=== PATIENT | female | born 2005 | race Caucasian/White ===

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

== ENCOUNTER 2025-03-18 07:53 | Emergency (ER) | payer BC, MEDICAID, SELFPAY ==
--- OUTSIDE RECORDS SUMMARY | 2025-02-03 13:13 | XMS RPT_ITS ---
Author Name Auto Generated Organization OH[facility] Care Team Providers Care Cob Sawyer Name Role Phone YOLANDA FROST Attending Unavailable ASHISH ALDRIDGE Primary Care Unavailable REFERRED, SELF Referring Unavailable MATTHIEU PENDLETON Attending Unavailable ASHISH ADLRIDGE Primary Care Unavailable REFERRED, SELF Referring Unavailable FANTASMA LYMAN Primary Care Unavailable FANTASMA LYMAN Primary Care Unavailable STEPHANIA PELAEZ Attending Unavailable FANTASMA LYMAN Primary Care Unavailable NAKIA DOYLE Attending NAKIA Snow Primary Care Wilfredo OVERTON, PHYSICIAN Primary Care Unavailable MYESHA MORRELL Attending Unavailabl e PROBLEMS DATE TYPE CONDITION / CODE ATTENDING STATUS [facility] 02/03/2025 Active Urgency of urina tion / R39.15(ICD-10) STEPHANIA PELAEZ Active [facility] 01/22/2025 Final Diagnosis (Discharge) Restless legs syndrome / G25.81(ICD-10) [facility], [facility] 01/22/2025 Final Diagnosis (Discharge) Sleep disorder, unspecified / G47.9(ICD-10) [facility], [facility] 01/22/2025 Final Diagnosis (Discharge) Anxiety disorder, unspecified / F41.9(ICD-10) [facility] 01/22/2025 Final Diagnosis (Discharge) Encounter for screening for other suspected endocrine disorder / Z13.29(ICD-10) [facility], [facility] 08/21/2024 Admitting diagnosis Other psychoactive substance use, unspecified, uncomplicated / F19.90(ICD-10) [facility] 08/21/2024 Admitting diagnosis Opioid use, unspecified with withdrawal / F11.93(ICD-10) [facility] PROCEDURES No Procedure Records Found RESULTS BACTERIAL VAGINOSIS NAAT Collected: 2:37 PM Status: F Source: [facility] Order Comment: Specimen Type : SWAB Ordering Facility: [facility] Address: [address] [place] [address] TYPE CODE TESTS RESULT OUT OF RANGE REFERENCE UNITS LAB 58327-9([facility]) BV bacteria rRNA Vag Ql EBONI+probe Detected Abnormal Not detected Performed By: #### BVAMP, 36 902-5 #### [facility] CLIA [id number] [address] [place] [address] [place] C TRACH+GC DNA SPEC QL EBONI+PROBE Collected: 02/03/2025 2:37 PM Status: F Source: [facility] Order Comment: Specimen Type : SWAB Ordering Facility: [facility] Address: [address] [place] [address] TYPE CODE TESTS RESULT OUT OF RANGE REFERENCE UNITS LAB 76663-6(LOINC) N gonorrhoea rRNA Spec Ql EBONI+probe Not detected Not detected LAB 84455-3(LOINC) C trach rRNA Spec Ql EBONI+probe Not detected Not detected Performed By: #### BVAMP, 36 902-5 #### [facility] CLIA [id number] [address] [place] [address] [place] BACTERIA UR CULT Observed: 02/03/2025 2:37 PM Status: F Source: [facility] ORGANISM ID: 1 10,000 -<50,000 CFU/ml Mixed microbiota No further workup. Mixed microbiota can be due to???urine???contamination with skin bacteria at time of collection or presence of a long-term urinary catheter. If a new culture is needed, please consider re-education of the patient on proper midstream collection technique or straight catheterization for???urine???collection. Performed By: #### 630-4 ### # [facility] CLIA [id number] [address] [place] [address] [place] DODIE/TRICHOMONAS NAAT Collected: 2:37 PM Status: F Source: [facility] Order Comment: Specimen Type : SWAB Ordering Facility: [facility] Address: [address] [place] [address] TYPE CODE TESTS RESULT OUT OF RANGE REFERENCE UNITS LAB 72176-2([facility] ) Dodie DNA Vag Ql EBONI+probe Detected Abnormal Not detected Result Comment: The Dodie species group target includes C. albicans, C. tropicalis, C. parapsilosis, and C. dubliniensis. LAB 84877-0(INC ) C glabrata RNA Vag Ql EBONI+probe Not detected Not detected LAB 71016-6([facility] ) T vaginalis DNA Spec Ql EBONI+probe Not detected Not detected Performed By: #### CVTV #### [facility] CLIA [id number] [address] [place] [address] [place] PROGRESS Observed: 02/03/2025 2:05 PM Status: COMPLETED Source: [facility] HNO ID: [id number] Author: STEPHANIA PELAEZ MD Service: ? Author Type: Physician Type: Progress Notes Filed: 02/03/2025 15:05 Note Text: URGENT CARE LISA Ascencio Tabler is a 19 year old female. Patient presents with: Urinary Problem: Burning with urination x 2 days Would like std testing done as well Pt here with 2 day hx of dysuria no freq and urgency no vaginal discharge no abd/flank pain no N/V no fever or chills has had a uti once now with same sx Review of Systems Constitutional: Negative for chills, fatigue and fever. Gastrointestinal: Negative for abdominal pain, nausea and vomiting. Genitourinary: Positive for dysuria. Negative for flank pain, frequency, hematuria, pelvic pain, urgency, vaginal discharge and vaginal pain. Objective BP 115/77 Pulse 69 Temp 36.8 ?C (98.2 ?F) Resp 20 Wt 57 kg (125 lb 10.6 oz) LMP 01/07/2025 (Exact Date) SpO2 100% Physical Exam Vitals and nursing note reviewed. Constitutional: Appearance: Normal appearance. She is not ill-appearing. Abdominal: General: Bowel sounds are normal. Palpations: Abdomen is soft. Tenderness: There is no abdominal tenderness. There is no right CVA tenderness, left CVA tenderness, guarding or rebound. Neurological: Mental Status: She is alert and oriented to person, place, and time. Psychiatric: Mood and Affect: Mood normal. Behavior: Behavior normal. {ASSESSMENT/PLAN: 1. Urgency of urination - ICD9: 788.63, ICD10: R39.15 Will start treatment for a UTI and await results - HCG QUAL UR B/O - UA DIP, URINE (POC) - BACTERIAL CULTURE, URINE - GONORRHEA/CHLAMYDIA NAAT - DODIE/TRICHOMONAS NAAT - BACTERIAL VAGINOSIS NAAT - NITROFURANTOIN MONOHYDRATE AND MACROCRYSTAL 100 MG ORAL CAP Hcg was negative Stephania Pelaez MD History and Record Review External record(s) reviewed: prior outpatient record. Differential Diagnoses - uti is more likely for the following reason(s): suggested by HANDP - std is less likely for the following reason(s): no vaginal d/c, HANDP not suggestive Disposition The patient was discharged. Procedures CNOV Observed: 02/03/2025 1:15 PM Status: COMPLETED Source: [facility] Office Visit ([facility]) SONU KLEIN ([id number]) 5 F Date Time Provider Department 02/03/25 1:15 PM STEPHANIA PELAEZ During your visit today, we recorded the following information about you: Temperature Pulse Respiration Blood pressure 98.2 degrees 69/minute 20/minute 115/77 Weight Last Period 57 kg 01/07/25 Stephania Pelaez MD 02/03/2025 2:05 PM Signed Urinary Tract Infection Adult You have been diagnosed with a basic urinary tract infection (UTI). This means it does not involve your kidneys or areas other than your bladder. A UTI is an infection in your bladder. Your doctor diagnosed it by testing your urine. UTIs usually causes burning when you urinate (pee) or urinating often. It might make you feel like you have to urinate even when you don't. UTI is usually treated with antibiotics and medicine to help with pain. It is very important that you fill your prescription and take all of the antibiotics as directed. If a urinary tract infection goes untreated for too long, it can become a kidney infection. For Women: To reduce the risk of getting another UTI: Always urinate before and after sexual intercourse. Always wipe from front to back after urinating or having a bowel movement. Do not wipe from back to front. Drink plenty of fluids. Try to drink cranberry or blueberry juice. These juices have a chemical that stops bacteria from sticking to the bladder. Return here or go to the nearest Emergency Department immediately if: You have a fever (temperature higher than 100.4?F / 38?C) or shaking chills. You feel nauseated (sick to your stomach) or vomit (throw up). You have pain in your side or back. You don't get better after taking all of your antibiotics. You have any new symptoms or concerns. You feel worse or do not improve. If you can't follow up with your doctor, or if at any time you feel you need to be rechecked or seen again, come back here or go to the nearest emergency department. Stephania Peleaz MD 02/03/2025 3:05 PM Signed URGENT CARE LISAKENIA Lundr is a 19 year old female. Patient presents with: Urinary Problem: Burning with urination x 2 days Would like std testing done as well Pt here with 2 day hx of dysuria no freq and urgency no vaginal discharge no abd/flank pain no N/V no fever or chills has had a uti once now with same sx Review of Systems Constitutional: Negative for chills, fatigue and fever. Gastrointestinal: Negative for abdominal pain, nausea and vomiting. Genitourinary: Positive for dysuria. Negative for flank pain, frequency, hematuria, pelvic pain, urgency, vaginal discharge and vaginal pain. Objective BP 115/77 Pulse 69 Temp 36.8 ?C (98.2 ?F) Resp 20 Wt 57 kg (125 lb 10.6 oz) LMP 01/07/2025 (Exact Date) SpO2 100% Physical Exam Vitals and nursing note reviewed. Constitutional: Appearance: Normal appearance. She is not ill-appearing. Abdominal: General: Bowel sounds are normal. Palpations: Abdomen is soft. Tenderness: There is no abdominal tenderness. There is no right CVA tenderness, left CVA tenderness, guarding or rebound. Neurological: Mental Status: She is alert and oriented to person, place, and time. Psychiatric: Mood and Affect: Mood normal. Behavior: Behavior normal. {ASSESSMENT/PLAN: 1. Urgency of urination - ICD9: 788.63, ICD10: R39.15 Will start treatment for a UTI and await results - HCG QUAL UR B/O - UA DIP, URINE (POC) - BACTERIAL CULTURE, URINE - GONORRHEA/CHLAMYDIA NAAT - DODIE/TRICHOMONAS NAAT - BACTERIAL VAGINOSIS NAAT - NITROFURANTOIN MONOHYDRATE AND MACROCRYSTAL 100 MG ORAL CAP Hcg was negative Stephania Pelaez MD History and Record Review External record(s) reviewed: prior outpatient record. Differential Diagnoses - uti is more likely for the following reason(s): suggested by HANDP - std is less likely for the following reason(s): no vaginal d/c, HANDP not suggestive Disposition The patient was discharged. Procedures Allergies As of Date: 02/03/2025 (No Known Allergies) Date Reviewed: 02/03/2025 Reviewed by: Valeriano, Lyndsey, SANITARY CHEMIST - Fully Assessed Reason for Visit: Urinary Problem [252] Cmt: Burning with urination x 2 days Would like std testing done as well Primary Visit Diagnosis:Urgency of urination [R39.15] Order(s):UA DIP, URINE (POC) [[id number]] Order #: [id number]. #:[id number] BACTERIAL CULTURE, URINE [SQURCUL] Order #: [id number]. #:[id number] GONORRHEA/CHLAMYDIA NAAT [SQGCCT] Order #: [id number]. #:[id number] DODIE/TRICHOMONAS NAAT [SQCVTV] Order #: [id number]. #:[id number] BACTERIAL VAGINOSIS NAAT [SQBVAMP] Order #: [id number]. #:[id number] nitrofurantoin monohydrate and macrocrystal (MACROBID) 100 mg capsuleTake 1 capsule by mouth two times a day for 7 days.Disp: 14 capsuleRfl: 0 HCG QUAL UR B/O [[id number]] Order #: [id number] Prescriptions as of 02/03/2025 - ascorbic acid, vitamin C, (VITAMIN C) 250 mg tablet Take 250 mg by mouth once daily. - ferrous sulfate (IRON) 325 mg (65 mg iron) tablet Take 325 mg by mouth once daily. - folic acid 400 mcg tablet Take 400 mcg by mouth once daily. - nitrofurantoin monohydrate and macrocrystal (MACROBID) 100 mg capsule Take 1 capsule by mouth two times a day for 7 days. Problem List As Of Date: 02/03/2025 (None) Other instructions from your clinician: Urinary Tract Infection Adult You have been diagnosed with a basic urinary tract infection (UTI). This means it does not involve your kidneys or areas other than your bladder. A UTI is an infection in your bladder. Your doctor diagnosed it by testing your urine. UTIs usually causes burning when you urinate (pee) or urinating often. It might make you feel like you have to urinate even when you don't. UTI is usually treated with antibiotics and medicine to help with pain. It is very important that you fill your prescription and take all of the antibiotics as directed. If a urinary tract infection goes untreated for too long, it can become a kidney infection. For Women: To reduce the risk of getting another UTI: Always urinate before and after sexual intercourse. Always wipe from front to back after urinating or having a bowel movement. Do not wipe from back to front. Drink plenty of fluids. Try to drink cranberry or blueberry juice. These juices have a chemical that stops bacteria from sticking to the bladder. Return here or go to the nearest Emergency Department immediately if: You have a fever (temperature higher than 100.4?F / 38?C) or shaking chills. You feel nauseated (sick to your stomach) or vomit (throw up). You have pain in your side or back. You don't get better after taking all of your antibiotics. You have any new symptoms or concerns. You feel worse or do not improve. If you can't follow up with your doctor, or if at any time you feel you need to be rechecked or seen again, come back here or go to the nearest emergency department. Prescriptions ordered this encounter Disp Refills Start End NITROFURANTOIN MONOHYDRATE AND MACROCR* 14 c* 0 02/03/2025 02/10/2025 Route: PO Sig: Take 1 capsule by mouth two times a day for 7 days. Level of Service: OFFICE/OUTPATIENT ESTABLISHED MOD [facility] 30 MIN [59052] Encounter Status:Closed by STEPHANIA PELAEZ on 02/03/25 FE Collected: 5 3:49 PM Status: F Source: [facility] TYPE CODE TESTS RESULT OUT OF RANGE REFERENCE UNITS LAB FE(LOINC) Iron 25 Low 50-170 mcg/dL Performed By: #### FE #### [facility] [address] [place], [place] [address] CBC Collected: 5 3:48 PM Status: F Source: [facility] TYPE CODE TESTS RESULT OUT OF RANGE REFERENCE UNITS LAB WBC(LOINC) WBC 6.9 4.5-10.8 10 3/mcL LAB RBCCT(LOINC) RBC 4.76 4.10-5.30 10 6/mcL LAB HGB(LOINC) Hgb 13.2 12.0-16.0 G/dL LAB HCT(LOINC) Hct 40.1 34.0-46.0 % LAB MCV(LOINC) MCV 84.3 80.0-99.0 fL LAB MCH(LOINC) MCH 27.6 27.0-33.0 pg LAB MCHC(LOINC) MCHC 32.8 32.0-36.0 G/dL LAB RDW(LOINC) RDW 15.3 11.5-15.5 % LAB PLT(LOINC) Platelet 293 150-450 10 3/mcL LAB MPV(LOINC) MPV 8.6 6.6-10.5 fL Performed By: #### GFR, VIDH , IBC, CBC, ADIFF, ANEU, FERR, TSH, CMP #### [address] [address] #### B12, FOL #### [address] [address] .AUTO DIFF Collected: 01/22/2025 3:48 PM Status: F Source: [facility] TYPE CODE TESTS RESULT OUT OF RANGE REFERENCE UNITS LAB DAVON(LOINC) Neutrophil % 43.5 Low 50.0-75.0 % LAB LYM(LOINC) Lymphocyte % 41.6 High 20.0-40.0 % LAB MON(LOINC) Monocyte % 8.9 2.0-13.0 % LAB EO(LOINC) Eosinophil % 4.8 0.0-6.0 % LAB BAS(LOINC) Basophil % 1.2 0.0-2.5 % LAB ABLYM(LOINC) Lymphocyte, Absolute 2.9 0.9-4.3 10 3/mcL LAB ZUHAIR(LOINC) Monocyte, Absolute 0.6 0.1-1.4 10 3/mcL LAB AEOS(LOINC) Eosinophil, Absolute 0.3 0.0-0.7 10 3/mcL LAB ABAS(LOINC) Basophil, Absolute 0.1 0.0-0.3 10 3/mcL Performed By: #### GFR, VIDH , IBC, CBC, ADIFF, ANEU, FERR, TSH, CMP #### [address] [address] #### B12, FOL #### [address] [address] .NEUABS Collected: 3:48 PM Status: F Source: [facility] TYPE CODE TESTS RESULT OUT OF RANGE REFERENCE UNITS LAB ANEU(LOINC) Neutrophil, Absolute 3.0 2.3-8.1 10 3/mcL Performed By: #### GFR, VIDH , IBC, CBC, ADIFF, ANEU, FERR, TSH, CMP #### [place] [address] #### B12, FOL #### [place] [address] FERR Collected: 3:48 PM Status: F Source: [facility] TYPE CODE TESTS RESULT OUT OF RANGE REFERENCE UNITS LAB FERR(LOINC) Ferritin 23.0 8.0-252.0 ng/mL Performed By: #### GFR, VIDH , IBC, CBC, ADIFF, ANEU, FERR, TSH, CMP #### [place] [address] #### B12, FOL #### [place] [address] TSH Collected: 3:48 PM Status: F Source: [facility] TYPE CODE TESTS RESULT OUT OF RANGE REFERENCE UNITS LAB TSH(LOINC) TSH 2.12 0.52-4.13 mcIU/mL Performed By: #### GFR, VIDH , IBC, CBC, ADIFF, ANEU, FERR, TSH, CMP #### [place] [address] #### B12, FOL #### [place] [address] CMP Collected: 01/22/2025 3:48 PM Status: F Source: [facility] TYPE CODE TESTS RESULT OUT OF RANGE REFERENCE UNITS LAB GLU(LOINC) Glucose Level 86 70-105 mg/dL LAB NA(LOINC) Sodium Level 140 136-145 mmol/L LAB K(LOINC) Potassium Level 3.6 3.5-5.1 mmol/L LAB CL(LOINC) Chloride 105 98-107 mmol/L LAB CO2(LOINC) CO2 29 22-29 mmol/L LAB EBAL(LOINC) Electrolyte Balance 6.0 4.0-15.0 mEq/L LAB BUN(LOINC) BUN 12 7-18 mg/dL LAB CRE(LOINC) Creatinine Lvl (s) 0.66 0.51-0.95 mg/dL LAB BC(LOINC) BUN/Creatinine Ratio 18 7-27 ratio LAB CA(LOINC) Calcium Lvl 9.8 8.4-10.2 mg/dL LAB PROT(LOINC) Total Protein 7.6 6.4-8.2 G/dL LAB ALB(LOINC) Albumin Level 4.0 3.5-5.0 G/dL LAB GLB(LOINC) Globulin 3.6 2.7-4.4 G/dL LAB AG(LOINC) A/G Ratio 1.1 1.1-2.5 ratio LAB BILT(LOINC) Bili Total 0.3 0.2-1.0 mg/dL Result Comment: Use of this assay is not recommended for patients undergoing treatment with eltrombopag due to the potential for falsely elevated results. LAB AP(LOINC) Alk Phos 54 40-135 U/L LAB AST(LOINC) AST/SGOT 14 10-40 U/L LAB ALT(LOINC) ALT/SGPT 17 14-59 U/L Performed By: #### GFR, VIDH , IBC, CBC, ADIFF, ANEU, FERR, TSH, CMP #### [address] [address] #### B12, FOL #### [address] [address] .GFR Collected: 01/22/2025 3:48 PM Status: F Source: [facility] TYPE CODE TESTS RESULT OUT OF RANGE REFERENCE UNITS LAB eGFR(LOINC) Estimated Glomerular Filtration Rate >120 ml/min/1. 73sqm Result Comment: Stages of Chronic Kidney Disease (CKD) Stage Description eGFR(ml/min/1.73 sq.m.) CKD 1 Normal kidney function or >=90 normal kindney function with possible kidney damage (ex. Proteinuria) CKD 2 Kidney damage with mild loss 60-89 of kidney function CKD 3a Mild to moderate loss of kidney 45-59 function CKD 3b Moderate to severe loss of 30-44 of kindey function CKD 4 Severe loss of kidney function 15-29 CKD 5 Kidney failure <15 Note: (go live 2024) the eGFR calculation was updated to the 2020 CKD-EPI creatinine equation without a race factor to calculate the eGFR results. Performed By: #### GFR, VIDH , IBC, CBC, ADIFF, ANEU, FERR, TSH, CMP #### [address] [address] #### B12, FOL #### [address] [address] VIDH Collected: 3:48 PM Status: F Source: [facility] TYPE CODE TESTS RESULT OUT OF RANGE REFERENCE UNITS LAB VIDH(LOINC) Vit. D 25-Hydroxy 38.3 ng/mL Result Comment: Interpretive Values Based on Total 25(OH) Vitamin D: Deficient <20 ng/mL Insufficient 20 - <30 ng/mL Sufficient 30-100 ng/mL Performed By: #### GFR, VIDH , IBC, CBC, ADIFF, ANEU, FERR, TSH, CMP #### [address] [address] #### B12, FOL #### [place] [id number] IBC Collected: 3:48 PM Status: F Source: [facility] TYPE CODE TESTS RESULT OUT OF RANGE REFERENCE UNITS LAB IBC(LOINC) TIBC 365 250-450 mcg/dL Performed By: #### GFR, VIDH , IBC, CBC, ADIFF, ANEU, FERR, TSH, CMP #### [address] [address] #### B12, FOL #### [place] [address] B12 Collected: 01/22/2025 3:48 PM Status: F Source: [facility] TYPE CODE TESTS RESULT OUT OF RANGE REFERENCE UNITS LAB B12(LOINC) Vitamin B12 Lvl 1107 High 211-911 pg/mL Performed By: #### GFR, VIDH , IBC, CBC, ADIFF, ANEU, FERR, TSH, CMP #### [place] [id number] [place], [place] [address] #### B12, FOL #### [address] [address] FOL Collected: 3:48 PM Status: F Source: [facility] TYPE CODE TESTS RESULT OUT OF RANGE REFERENCE UNITS LAB FOL(LOINC) Folate 12.80 5.38-24.00 ng/mL Performed By: #### GFR, VIDH , IBC, CBC, ADIFF, ANEU, FERR, TSH, CMP #### [address] [address] #### B12, FOL #### [address] [address] PROGRESS NOTE Observed: 09/20/2024 3:30 PM Status: COMPLETED Source: [facility] Patient ID: Sonu garcia is a 19 y.o. female. Her chief complaint(s) include: Insomnia (restlessness) and Left Knee Pain (Had whole life but has recently gotten worse due to participation in sports) Assessment 1. Tendonitis of left knee 2. Other insomnia 3. Opiate withdrawal Plan Sonu was seen today for insomnia and left knee pain. Diagnoses and associated orders for this visit: Tendonitis of left knee Comments: with history Lopez Schlatter Orders: - X-Ray Knee 3 Views Left; Future Other insomnia Comments: likely related to some opiate withdrawl Orders: - hydrOXYzine (ATARAX) 25 MG tablet; Take 1 Tablet (25 mg) by mouth every 6 hours as needed for Anxiety May take 2 tablets (50 mg) by mouth at bedtime if needed for sleep. Opiate withdrawal Knee pain- Exercises given- consider PT EConsult addiction services Call Mom with recommendations- ok with Sonu Mom does have narcan at home Subjective HPI Comments: 1.) Knee pain, always proximal tibial area bilateral. 5-6 years ago. Thinks maybe Lopez Schlatters. She played basketball, volleyball, track/ softball in past at [employer]. The left knee is bothering her a lot 2.) Sleep is also an issue. Fentanyl was issue about 1 year. Sober now for a month. She went to rehab outside of [place]. She gets restless legs syndrome. She can be up around 23 hours during the day. She tried melatonin and get some sleep. She has relapsed once (prior to the last month). We discussed hydroxyzine as an option for both sleep and the restlessness she feels during the day. Currently Sonu is not in any kind of outpatient rehabilitation program. She is interested in this. She is accompanied by her mother. Independent history obtained from mother. Primary Care Review of Systems Objective Vital Signs 09/20/24 1532 Temp: 36.8 C (98.3 F) TempSrc: Temporal Weight: 63.2 kg Height: 157.5 cm Body mass index is 25.48 kg/m . Physical Exam Constitutional: She appears well. She is active. No distress. HENT: Head: Atraumatic. Mouth/Throat: Mucous membranes are moist. Cardiovascular: Normal rate and regular rhythm. Heart murmur not heard. Pulmonary/Chest: Breath sounds normal. There is normal air entry. Neurological: She is alert. Vitals reviewed: Temperature 36.8 C (98.3 F), temperature source Temporal, height 157.5 cm, weight 63.2 kg, last menstrual period 09/09/2024. ED PROV NOTE Observed: 08/21/2024 2:51 PM Status: COMPLETED Source: [facility] EMERGENCY DEPARTMENT CASE NOTE: NAME: Sonu Begum Tabler CSN: [id number] 19 y.o. PCP: No, Physician History: Chief Complaint: Withdrawal HPI: The history was obtained from the patient. Sonu is a 19 y.o. female who presents with a chief complaint of Withdrawal. Patient presents to the emergency department with complaints of fentanyl use. She states that she would like to get into a detox unit to get off fentanyl. She states the last time that she used was yesterday. She states that she does smoke the fentanyl when she uses it. She denies any chance of . She states that she has been having some withdrawal symptoms including restlessness, nausea and bodyaches. She denies any other complaints. No fever/chills, headache, lightheadedness or dizziness, shortness of breath, chest pain, vomiting, diarrhea, abdominal pain or change urination/urinary symptoms. She reports has been eating and drinking okay. PMHx: Past Medical History: Diagnosis Date Constipation PMSx: History reviewed. No pertinent surgical history. FAM. Hx: History reviewed. No pertinent family history. SOC. Hx: Social History Socioeconomic History Marital status: Single Tobacco Use Smoking status: Never Smokeless tobacco: Never Vaping Use Vaping status: Never Used Substance and Sexual Activity Alcohol use: Never Drug use: Yes Types: Marijuana, Other Comment: smokes marijuana (one week ago) smoking fetanyl yesterday MEDs: Previous Medications Medication Sig dicyclomine (BENTYL) 20 mg tablet Take 1 (one) tablet (20 mg total) by mouth 4 (four) times a day before meals and nightly for 14 days . polyethylene glycol (MIRALAX) 17 gram powder Take 17 g by mouth daily as needed . ALL: No Known Allergies ROS: Review of Systems Constitutional: Negative. HENT: Negative. Eyes: Negative. Respiratory: Negative. Cardiovascular: Negative. Gastrointestinal: Negative. Endocrine: Negative. Genitourinary: Negative. Musculoskeletal: Negative. Skin: Negative. Allergic/Immunologic: Negative. Neurological: Negative. Hematological: Negative. Psychiatric/Behavioral: Negative. All other systems reviewed and are negative. Positives and pertinent negatives as per HPI. All other systems were reviewed and are negative. Physical Exam: Patient Vitals for the past 24 hrs: BP Temp Temp src Pulse SpO2 08/21/24 1243 132/80 98.7 degrees F (37.1 degrees C) Oral 80 99 % Physical Exam Vitals and nursing note reviewed. Constitutional: General: She is not in acute distress. Appearance: Normal appearance. She is not ill-appearing, toxic-appearing or diaphoretic. HENT: Mouth/Throat: Mouth: Mucous membranes are moist. Pharynx: Oropharynx is clear. Eyes: Conjunctiva/sclera: Conjunctivae normal. Cardiovascular: Pulses: Radial pulses are 2+ on the right side and 2+ on the left side. Heart sounds: Normal heart sounds, S1 normal and S2 normal. No murmur heard. No friction rub. No gallop. Pulmonary: Breath sounds: Normal breath sounds. Abdominal: General: Abdomen is flat. Palpations: Abdomen is soft. Tenderness: There is no abdominal tenderness. There is no guarding or rebound. Skin: General: Skin is warm. Capillary Refill: Capillary refill takes less than 2 seconds. Neurological: General: No focal deficit present. Mental Status: She is alert and oriented to person, place, and time. GCS: GCS eye subscore is 4. GCS verbal subscore is 5. GCS motor subscore is 6. Cranial Nerves: Cranial nerves 2-12 are intact. Sensory: Sensation is intact. Motor: No weakness. Coordination: Coordination is intact. Gait: Gait normal. Psychiatric: Behavior: Behavior is cooperative. Laboratory & Radiological Imaging (if done): Labs Reviewed URINALYSIS - Abnormal; Notable for the following components: Result Value Clarity, Urine Cloudy (*) Specific [place] 1.028 (*) pH, Urine 7.5 (*) Protein, Urine 30 (*) Urobilinogen, Urine 2.0 (*) Bacteria, Urine Few (*) Squamous Epithelial 70 (*) Mucus, Urine Few (*) All other components within normal limits Narrative: Microscopic examination is performed on all urinalysis samples and only positive findings are reported. The test for blood on the chemical analytic portion of urinalysis may also be positive due to hemoglobinuria and myoglobinuria and if red blood cells are present they are quantified by microscopic examination. DRUGS OF ABUSE SCREEN, URINE - Abnormal; Notable for the following components: Amphetamine Screen, Urine Presumptive Positive (*) Cannabinoid Screen, Urine Presumptive Positive (*) Cocaine, Screen Urine Presumptive Positive (*) Buprenorphine, Ur Presumptive Positive (*) Fentanyl, Ur Presumptive Positive (*) All other components within normal limits Narrative: Screen results should be used for treatment purposes only. Specimen will be kept for 2 weeks, if the sample is adequate. Confirmation testing can be initiated by calling the lab within 2 weeks. CHEM 7 - Abnormal; Notable for the following components: Glucose 122 (*) All other components within normal limits Narrative: [facility] has implemented the eGFR calculation approach that does not have a coefficient for race that conforms to the NKF-ASN Task Force Recommendations. ALCOHOL, MEDICAL - Normal HCG, SERUM, QUALITATIVE - Normal Narrative: Negative: The result is less than or equal to 5 mIU/mL of HCG. CBC AND DIFFERENTIAL Narrative: The following orders were created for panel order CBC w/ Diff. Procedure Abnormality Status --------- ------ CBC Auto Differential[[id number]] Final result Please view results for these tests on the individual orders. HEPATIC FUNCTION PANEL HIV 1/2 SCREEN (4TH GENERATION) HEPATITIS PANEL, ACUTE TSH WITH REFLEX FREE T4 CBC WITH AUTO DIFFERENTIAL No orders to display MDM/ED course: Patient presents to the emergency department with complaints of fentanyl use. She states that she would like to get into a detox unit to get off fentanyl. She states the last time that she used was yesterday. She states that she does smoke the fentanyl when she uses it. She denies any chance of . She states that she has been having some withdrawal symptoms including restlessness, nausea and bodyaches. She denies any other complaints. No fever/chills, headache, lightheadedness or dizziness, shortness of breath, chest pain, vomiting, diarrhea, abdominal pain or change urination/urinary symptoms. She reports has been eating and drinking okay. On exam patient is nontoxic-appearing no acute distress. Neuroexam is grossly intact. Patient has equal strength bilaterally in upper and lower extremities and is ambulating without difficulty. Heart sounds are normal. Lung sounds are clear and equal bilaterally with no wheezes, rhonchi or rales. Respirations are even and unlabored. Abdomen is soft, nondistended nontender. Vital signs are stable. Patient is afebrile. Given history and physical exam ED workup including labs, UA, urine drug screen, test and EKG were ordered. EKG shows normal sinus rhythm with sinus arrhythmia. Ventricular rate of 93 bpm. There is no ischemic ST elevations or depressions or evidence of active ischemia. CBC is without leukocytosis or anemia. Chem-7 without significant electrolyte derangement. Kidney function is normal. Medical alcohol level normal. test negative. UA without concern for UTI. Urine drug screen was positive for amphetamines, cannabinoids, cocaine, buprenorphine and fentanyl. I did reach out to our substance abuse navigator who evaluated the patient. Patient was excepted to [facility] detox unit. Patient reports that she does have her own personal provide he was going to take her over to the detox unit. Plan of care was discussed at length with the patient by myself and substance abuse navigator. She was also seen by addiction medicine physician Dr. Burns. At this time she will be discharged in stable condition with plans to go to [facility] for inpatient detox. Patient tolerant p.o. intake and ambulating without difficulty upon discharge. I did personally review Sonu's past medical history, surgical history, social history, as well as family history (when relevant). In this case, I also oversaw the her drug management by reviewing her medication list, allergy list, as well as the medications that I prescribed during the ED course and/or recommended as an out-patient (including possible OTC medications such as acetaminophen, NSAIDs , etc). Her past medical problem list included: Active Ambulatory Problems Diagnosis Date Noted No Active Ambulatory Problems Resolved Ambulatory Problems Diagnosis Date Noted No Resolved Ambulatory Problems Past Medical History: Diagnosis Date Constipation ED MEDICATIONS GIVEN: Medications - No data to display After reviewing the items above, I did look at previous medical documentation, such as recent hospitalizations, office visits, and/or recent consultations with PCP/specialist. SDOH: Another factor that I considered in Sonu's care was her Social Determinants of Health (SDOH). During this ED encounter, she DID have issues that complicated the ED care today which included chemical dependency (drugs and/or alcohol). On this particular ED encounter, I did utilize shared decision making. Based on the medication and/or treatment that our team has rendered to this patient, their medical condition has improved. I recognize that there are risks with hospitalization (such as nosocomial infections, falls, thromboembolic disease, etc) as well as being discharged (worsening of condition, including cardiopulmonary arrest). However, in my medical opinion with the clinical information available to me at the time of this decision, I believe the best disposition for Sonu is discharged to detox. . Clinical Impression: 1. Drug use 2. Opiate withdrawal (HCC) Disposition: ED Disposition ED Disposition Discharge Condition Stable Comment Sonu Klein discharged to home/self care in stable condition. Renuka Pisano CNP, [facility] Advanced Practice Provider [facility] EMERGENCY DEPARTMENT (Please note that portions of this note have been completed with a voice recognition software. Efforts were made to correct any errors, but occasionally words are mis-transcribed.) Renuka Pisano CNP 08/21/24 1458 AUTHENTICATED BY RENUKA PISANO, ON 08/21/2024 14:58:01 CONSULT Observed: 08/21/2024 2:35 PM Status: COMPLETED Source: [facility] ADDICTION MEDICINE CONSULT N OTE Patient Name: Sonu Klein Admit Date: [id number] MR #: [id number] : 2005 Physicians: Keshia Garcia, (Family); No ref. provider found (referring) Active Problems: * No active hospital problems. * Assessment and Plan: OPIATE WITHDRAWAL / METH THC COCAINE USE With having going through precipitated withdrawal and feeling better at this point does not want further Suboxone and will see what happens when she gets to [facility]. Arrangements were made for her to be admitted to [facility] via [facility] will be driving her. Labs reviewed and within normal range largely other than a sugar of 122 Assessment Detail: The total time spent for this visit was 40-45 minutes. Greater than 50% of the time was spent in counseling and coordination of care. Reason for Consult: Medical management of opioid use disorder. Management of stimulant use disorder. Management of substance use disorder Linkage to inpatient residential treatment Linkage to follow up treatment History of Present Illness: Sonu Klein is a 19 y.o. y/o female presenting from street with c/o withdrawal Chief Complaint Patient presents with Withdrawal 08/21/24 -patient was seen in [place] emergency department after hallway. She is with a boyfriend and had been brought here by a friend named Maria Fernanda who is also willing to help get her to treatment that was arranged by Chuck Mulligan. They both have been smoking fentanyl 4-6 times a day for a while. The also smoked THC daily and meth once or twice a week. They tried crack cocaine yesterday for the first time as they were trying to help with early withdrawal from fentanyl and felt good but did not think that it helped. They had not been able to get fentanyl for a couple days. They took a Suboxone and both became quite sick and explained precipitated withdrawal and that was what had drawn them to the emergency department. She is feeling better at this point and had not gotten any medications. Has not been officially into any treatment and is interested in inpatient and possibly residential. She is from [facility] but has been staying place to place in [place] with her friend. Just had a birthday and is interested in getting her act together. Arrangements were made for her to get to [facility] and [place] will drive her there and she feels comfortable and confident with him. Past Medical History: Diagnosis Date Constipation History reviewed. No pertinent surgical history. History reviewed. No pertinent family history. Social History Socioeconomic History Marital status: Single Tobacco Use Smoking status: Never Smokeless tobacco: Never Vaping Use Vaping status: Never Used Substance and Sexual Activity Alcohol use: Never Drug use: Yes Types: Marijuana, Other Comment: smokes marijuana (one week ago) smoking fetanyl yesterday AOD History: No problems updated. Substance(s) of Choice fentanyl greater than meth greater than THC Treatment history: None really Longest period of sobriety: Question OD history: no Typical withdrawal symptoms: Varies History of precipitated withdrawal: Now Seizure history: no Psychiatric History: Diagnoses: no Provider: no SI or SA: Previous Medications Medication Sig dicyclomine (BENTYL) 20 mg tablet Take 1 (one) tablet (20 mg total) by mouth 4 (four) times a day before meals and nightly for 14 days . polyethylene glycol (MIRALAX) 17 gram powder Take 17 g by mouth daily as needed . No Known Allergies Review of Systems All other systems reviewed and are negative. Patient Vitals for the past 24 hrs: BP Temp Temp src Pulse SpO2 08/21/24 1243 132/80 98.7 degrees F (37.1 degrees C) Oral 80 99 % Physical Exam Vitals and nursing note reviewed. Constitutional: Appearance: She is well-developed. HENT: Head: Normocephalic. Eyes: General: No scleral icterus. Conjunctiva/sclera: Conjunctivae normal. Pupils: Pupils are equal, round, and reactive to light. Cardiovascular: Rate and Rhythm: Normal rate. Musculoskeletal: General: Normal range of motion. Cervical back: Normal range of motion and neck supple. Pulmonary: Effort: Pulmonary effort is normal. Skin: General: Skin is warm and dry. Neurological: General: No focal deficit present. Mental Status: She is alert and oriented to person, place, and time. Psychiatric: Mood and Affect: Mood normal. Behavior: Behavior normal. Allergy Information: I have reviewed the patient's allergies. Patient has no known allergies. Home Medications: Outpatient Medications as of 08/21/2024 Medication Sig dicyclomine (BENTYL) 20 mg tablet Take 1 (one) tablet (20 mg total) by mouth 4 (four) times a day before meals and nightly for 14 days . polyethylene glycol (MIRALAX) 17 gram powder Take 17 g by mouth daily as needed . Laboratory & Radiographic Imaging (if done): Recent Results (from the past 24 hours) Alcohol Level Collection Time: 08/21/24 12:58 PM Result Value Ref Range Alcohol (Medical) <10.0 <10.0 mg/dL Chem 7 Collection Time: 08/21/24 12:58 PM Result Value Ref Range Sodium 137 135 - 145 mmol/L Potassium 3.9 3.5 - 5.1 mmol/L Chloride 99 98 - 108 mmol/L Bicarbonate 25 21 - 32 mmol/L Anion Gap 17 10 - 20 mmol/L Glucose 122 (H) 65 - 99 mg/dL BUN 11 8 - 25 mg/dL Creatinine 0.73 0.40 - 1.10 mg/dL eGFR 122 >=60 mL/min/1.73 m2 BUN/Creatinine Ratio 15.1 10.0 - 20.0 hCG, Serum, QUALITATIVE Collection Time: 08/21/24 12:58 PM Result Value Ref Range Beta-hCG Qual Negative Negative CBC Auto Differential Collection Time: 08/21/24 12:58 PM Result Value Ref Range WBC 5.27 4.50 - 11.00 K/mcL RBC 5.04 4.00 - 5.20 M/mcL Hemoglobin 13.6 12.0 - 16.0 g/dL Hematocrit 42.5 36.0 - 46.0 % MCV 84.3 80.0 - 100.0 fL MCH 27.0 26.0 - 34.0 pg MCHC 32.0 31.0 - 37.0 g/dL Platelets 385 150 - 400 K/mcL RDW - CV 14.3 11.6 - 14.8 % MPV 9.8 9.4 - 12.4 fL Neutrophils 58.8 % Lymphocytes 30.6 % Monocytes 7.8 % Eosinophils 1.5 % Basophils 1.1 % IG Percent 0.20 % Neutrophils Abs 3.10 1.70 - 7.00 K/mcL Lymphocytes Abs 1.61 0.90 - 4.00 K/mcL Monocytes Abs 0.41 0.30 - 0.90 K/mcL Eosinophils Abs 0.08 0.00 - 0.50 K/mcL Basophils Abs 0.06 0.00 - 0.30 K/mcL IG Absolute 0.01 0.00 - 0.30 K/mcL Nucleated RBC 0.0 % Nucleated RBC Abs 0.00 0.00 - 0.00 K/mcL Urinalysis Collection Time: 08/21/24 1:05 PM Result Value Ref Range Color, Urine Yellow Colorless, Yellow Clarity, Urine Cloudy (A) Clear Specific [place] 1.028 (H) 1.005 - 1.025 pH, Urine 7.5 (H) 5.0 - 7.0 Protein, Urine 30 (A) Negative mg/dL Glucose, Urine Negative Negative mg/dL Ketones, Urine Negative Negative mg/dL Bilirubin, Urine Negative Negative Urobilinogen, Urine 2.0 (A) <2.0 mg/dL Blood, Urine Negative Negative Nitrite, Urine Negative Negative Leukocyte Esterase, Urine Negative Negative WBCs, Urine 5 0 - 5 /hpf Bacteria, Urine Few (A) None Seen /hpf Squamous Epithelial 70 (H) 0 - 4 /hpf Transitional Epithelial 1 0 - 1 /hpf Mucus, Urine Few (A) None Seen, Rare /lpf Drugs of Abuse Screen, Urine Collection Time: 08/21/24 1:05 PM Result Value Ref Range Amphetamine Screen, Urine Presumptive Positive (A) None Detected Barbiturate Screen, Urine None Detected None Detected Benzodiazepine Screen, Urine None Detected None Detected Cannabinoid Screen, Urine Presumptive Positive (A) None Detected Cocaine, Screen Urine Presumptive Positive (A) None Detected Methadone Screen, Urine None Detected None Detected Opiate Screen, Urine None Detected None Detected Oxycodone Screen, Urine None Detected None Detected Buprenorphine, Ur Presumptive Positive (A) None Detected Fentanyl, Ur Presumptive Positive (A) None Detected Lab Results Component Value Date AMPHUR Presumptive Positive (A) 08/21/2024 BARBUR None Detected 08/21/2024 BENZUR None Detected 08/21/2024 THCUR Presumptive Positive (A) 08/21/2024 COCAINESUR Presumptive Positive (A) 08/21/2024 URMETH None Detected 08/21/2024 OPIATEUR None Detected 08/21/2024 UROXYCODONE None Detected 08/21/2024 FENTANYLUR Presumptive Positive (A) 08/21/2024 BUPUR Presumptive Positive (A) 08/21/2024 No orders to display Nabil Burns MD This note was dictated using voice-recognition software for expedited communication. Please kindly excuse any typos or mis-recognized words. AUTHENTICATED BY NABIL BURNS, ON 08/21/2024 17:47:11 URINALYSIS Collected: 1:05 PM Status: F Source: [facility] Order Comment: Microscopic e xamination is performed on all urinalysis samples and only positive findings are reported. The test for blood on the chemical analytic portion of urinalysis may also be positive due to hemoglobinuria and myoglobinuria and if red blood cells are present they are quantified by microscopic examination. TYPE CODE TESTS RESULT OUT OF RANGE REFERENCE UNITS LAB URCOLOR COLOR, URINE Yellow Colorle ss, Yellow LAB CLA CLARITY, URINE Cloudy Abnormal Clear LAB SG SPECIFIC GRAVITY 1.028 High 1.005-1.025 LAB URPH PH, URINE 7.5 High 5.0-7.0 LAB URPRO PROTEIN, URINE 30 Abnormal Negative mg/dL Result Comment: False positi ve results may occur in urines with large amounts of hemoglobin, pH greater than 8.0, contrast medium, or disinfectants including ammonium compounds. LAB URGLU GLUCOSE, URINE Negative Negative mg/dL LAB KET KETONES, URINE Negative Negative mg/dL LAB TAVON BILIRUBIN, URINE Negative Negative LAB URO UROBILINOGEN, URINE 2.0 Abnormal <2.0 mg/dL LAB URBLD BLOOD, URINE Negative Negative LAB NIT NITRITE, URINE Negative Negative LAB VIKTORIA LEUKOCYTE ESTERASE, URINE Negative Negative LAB URWBC WBC, URINE 5 0-5 /hpf LAB BACT BACTERIA, URINE Few Abnormal None Seen /hpf LAB SQEP SQUAMOUS EPITHELIAL 70 High 0-4 /hpf LAB TREP TRANSITIONAL EPITHELIAL 1 0-1 /hpf LAB MUCS MUCUS, URINE Few Abnormal None Se en, Rare /lpf Performed By: #### [id number] ### # [facility] [address] [place], [place] [address] Mann iTan M.D. [id number] DRUGS OF ABUSE SCREEN, URINE Collected: 08/21/2024 1:05 PM Status: F Source: [facility] Order Comment: Screen result s should be used for treatment purposes only. Specimen will be kept for 2 weeks, if the sample is adequate. Confirmation testing can be initiated by calling the lab within 2 weeks. TYPE CODE TESTS RESULT OUT OF RANGE REFERENCE UNITS LAB URAMPH AMPHETAMINE SCREEN, URINE Presumptive Positive Abnormal None Detected Result Comment: Urine Amphet amine Cutoff: < 1000 ng/mL = None Detected LAB URBARB BARBITURATE SCREEN URINE None Detected None Detected Result Comment: Urine Barbit urates Cutoff: < 200 ng/mL = None Detected LAB URBDZ BENZODIAZEPINE SCREEN, URINE None Detected None Detected Result Comment: Urine Benzod iazepine Cutoff: < 200 ng/mL = None Detected LAB URTHC CANNABINOID SCREEN URINE Presumptive Positive Abnormal None Detected Result Comment: Urine Cannab inoids Cutoff: < 50 ng/mL = None Detected LAB URCOC COCAINE, SCREEN URINE Presumptive Positive Abnormal None Detected Result Comment: Urine Cocain e Cutoff: < 300 ng/mL = None Detected LAB URMETH METHADONE SCREEN, URINE None Detected None Detected Result Comment: Urine Methad one Cutoff: < 300 ng/mL = None Detected LAB UROPIATES OPIATE SCREEN URINE None Detected None Detected Result Comment: Urine Opiate s Cutoff: < 300 ng/mL = None Detected LAB UROXY OXYCODONE SCREEN, URINE None Detected None Detected Result Comment: Urine Oxycod one Cutoff: < 100 ng/mL = None Detected LAB URBUP BUPRENORPHINE, URINE Presumptive Positive Abnormal None Detected Result Comment: Urine Bupren orphine Cutoff: < 5 ng/mL = None Detected LAB 5146 FENTANYL, URINE Presumptive Positive Abnormal None Detected Result Comment: Urine Fentan yl Cutoff: < 1 ng/mL = None Detected Performed By: #### [id number] ### # [facility] [address] [place], [place] [address] Mann Tian M.D. [id number] CBC WITH AUTO DIFFERENTIAL Collected: 08/21/2024 12:5 8 PM Status: F Source: [facility] TYPE CODE TESTS RESULT OUT OF RANGE REFERENCE UNITS LAB WBC WHITE BLOOD CELL COUNT 5.27 4.50-11.00 K/mcL LAB RBC RED BLOOD CELL COUNT 5.04 4.00-5.20 M/mcL LAB HGB HEMOGLOBIN 13.6 12.0-16.0 g/dL LAB HCT HEMATOCRIT 42.5 36.0-46.0 % LAB MCV MEAN CORPUSCULAR VOLUME 84.3 80.0-100.0 fL LAB MCH MEAN CORPUSCULAR HEMOGLOBIN 27.0 26.0-34.0 pg LAB MCHC MEAN CORPUSCULAR HEMOGLOBIN CONC 32.0 31.0-37.0 g/dL LAB PLT PLATELET COUNT 385 150-400 K/mcL LAB RDW RED CELL DISTRIBUTION WIDTH 14.3 11.6-14.8 % LAB MPV MEAN PLATELET VOLUME 9.8 9.4-12.4 fL LAB NEUTS% NEUTROPHILS RELATIVE PERCENT 58.8 % LAB LYMPHS% LYMPHOCYTES RELATIVE PERCENT 30.6 % LAB MONOS% MONOCYTES RELATIVE PERCENT 7.8 % LAB EOSIN% EOSINOPHILS RELATIVE PERCENT 1.5 % LAB BASO% BASOPHILS RELATIVE PERCENT 1.1 % LAB 63285 IG PERCENT 0.20 % Result Comment: The IG teodora eter is the percentage of metamyelocytes, myelocytes and promyelocytes. An immature granulocyte count (IG) of 1% or more suggests the possibility of infection, an IG count of 3% is very likely related to an infection. LAB NEUTSABS NEUTROPHILS ABSOLUTE COUNT 3.10 1.70-7.00 K/mcL LAB LYMPHSABS LYMPHOCYTES ABSOLUTE COUNT 1.61 0.90-4.00 K/mcL LAB MONOSABS MONOCYTES ABSOLUTE COUNT 0.41 0.30-0.90 K/mcL LAB EOSABS EOSINOPHILS ABSOLUTE COUNT 0.08 0.00-0.50 K/mcL LAB BASOABS BASOPHILS ABSOLUTE COUNT 0.06 0.00-0.30 K/mcL LAB 40272 IG ABSOLUTE 0.01 0.00-0.30 K/mcL LAB NRBC AUTO NRBC 0.0 % LAB NRBCAB AUTO NRBC ABS COUNT 0.00 0.00-0.00 K/mcL Performed By: #### [id number] # ### LAB [address] [place], [place] [address] Mann Tian M.D. [id number] HEPATIC FUNCTION PANEL Collected: 08/21/2024 12:58 PM Status: F Source: [facility] TYPE CODE TESTS RESULT OUT OF RANGE REFERENCE UNITS LAB TP TOTAL PROTEIN 7.8 6.0-8.0 g/dL LAB ALB ALBUMIN 4.7 3.2-5.2 g/dL LAB TBIL BILIRUBIN TOTAL 1.2 0.0-1.3 mg/dL LAB DBIL BILIRUBIN, DIRECT 0.4 0.0-0.4 mg/dL LAB ALP ALKALINE PHOSPHATASE 62 40-140 U/L LAB AST AST (SGOT) 22 0-35 U/L U/L LAB ALT ALT 21 0-35 U/L U/L Performed By: #### [id number] ### # LAB [address] [place], [place] [address] Mann Tian M.D. [id number] HIV 1/2 SCREEN (4TH GENERATION) Collect ed: 08/21/2024 12:58 PM Status: F Source: [facility] Order Comment: This assay sc reens for the presence of HIV-1, HIV-2 antibodies and for the presence of HIV-1 antigen. Test performed using [employer] immunoassay system TYPE CODE TESTS RESULT OUT OF RANGE REFERENCE UNITS LAB HIV HIV 1-2 SCREEN Negative Negative Performed By: #### [id number] ### # [facility] [address] [address] Jerfy Butler M.D. [id number] TSH WITH REFLEX FREE T4 Collected: 08/2024 12:58 PM Status: F Source: [facility] TYPE CODE TESTS RESULT OUT OF RANGE REFERENCE UNITS LAB TSHR TSHR 0.69 0.27-4.20 mcIU/mL Performed By: #### [id number] ### # [facility] [address] [place] [address] Mann Tian M.D. [id number] CHEM 7 Collected: 12:58 PM Status: F Source: [facility] Order Comment: [facility] has implemented the eGFR calculation approach that does not have a coefficient for race that conforms to the NKF-ASN Task Force Recommendations. TYPE CODE TESTS RESULT OUT OF RANGE REFERENCE UNITS LAB [id number] SODIUM 137 135-145 mmol/L LAB [id number] POTASSIUM 3.9 3.5-5.1 mmol/L LAB 7120851 CHLORIDE 99 98-108 mmol/L LAB BICARB BICARBONATE 25 21-32 mmol/L LAB AG ANION GAP 17 10-20 mmol/L LAB [id number] GLUCOSE 122 High 65-99 mg/dL LAB BUN BUN 11 8-25 mg/dL LAB CREAT CREATININE 0.73 0.40-1.10 mg/dL LAB GFR EGFR 122 >=60 mL/min/1. 73 m2 Result Comment: Estimated GF R was calculated using the 2020 CKD-EPI creatinine equation. LAB BUNCREAT BUN / CREAT RATIO 15.1 10.0-20.0 Performed By: #### [id number] ### # [facility] [address] [address] Mann Tian M.D. [id number] HCG, SERUM, QUALITATIVE Collected: 08/2024 12:58 PM Status: F Source: [facility] Order Comment: Negative: The result is less than or equal to 5 mIU/mL of HCG. TYPE CODE TESTS RESULT OUT OF RANGE REFERENCE UNITS LAB BHCG BETA-HCG QUAL BLOOD Negative Negative Performed By: #### [id number] ### # [facility] [address] [place], [place] [address] Mann Tian M.D. [id number] HEPATITIS PANEL, ACUTE Collected: 08/21 12:58 PM Status: F Source: [facility] Order Comment: Test performe d using Alfonso IRIS immunoassay system TYPE CODE TESTS RESULT OUT OF RANGE REFERENCE UNITS LAB HAVABM HEPATITIS A IGM ANTIBODY Negative Negative LAB COREM HEPATITIS B CORE IGM ANTIBODY Negative Negative LAB HEPBAG HEPATITIS B SURFACE ANTIGEN Negative Negative LAB HEPCAB HEPATITIS C ANTIBODY Negative Negative Performed By: #### [id number] ### # [facility] [address] [address] Jefry Butler M.D. [id number] ALCOHOL, MEDICAL Collected: 12:58 PM Status: F Source: [facility] TYPE CODE TESTS RESULT OUT OF RANGE REFERENCE UNITS LAB ALC RAW ALCOHOL MEDICAL < <10.0 mg/dL Result Comment: Alcohol cuto ff: <10.00 mg/dL = None Detected Performed By: #### [id number] ### # LAB [address], [place] [address] Mann Tian M.D. [id number] CNOV Observed: 06/29/2024 2:45 PM Status: COMPLETED Source: [facility] Office Visit ([facility]STR) SONU KLEIN ([id number]) 5 F Date Time Provider Department 06/29/24 2:45 PM ISIDORO NELSON [facility] During your visit today, we recorded the following information about you: Temperature Pulse Respiration Blood pressure 98.5 degrees 97/minute 18/minute 125/80 Weight Last Period 58.4 kg 06/26/24 Isidoro Nelson APRN.CNP 06/29/2024 3:02 PM Signed This note was created using Vignoriter. Cachorro Klein is a 18 year old female. 18 year old female with no PMH presents for illness Acute onset 4 days ago +vaginal discharge +white +thick and chunky +burning with urination Denies abdominal pain Denies flank pain Denies skin rash or lesions. LMP-June 26 +sexually active Denies contraceptives Denies prior history of Recent ATB usage The history is provided by the patient. No world language teacher was used. Vaginal Discharge This is a new problem. The current episode started more than 2 days ago. The problem occurs constantly. The problem has been gradually worsening. The discharge occurs While at rest. The discharge was White and thick. She is not . She has not missed her period. Associated symptoms include dysuria. Pertinent negatives include no anorexia, no diaphoresis, no fever, no abdominal swelling, no abdominal pain, no constipation, no diarrhea, no nausea, no vomiting, no dyspareunia, no frequency, no genital burning, no genital itching, no genital lesions, no perineal pain and no perineal odor. She has tried nothing for the symptoms. The treatment provided no relief. Her past medical history does not include irregular periods, PID, STD, ectopic , ovarian cysts or infertility. No past medical history on file. No past surgical history on file. ALLERGIES Patient has no known allergies. MEDICATIONS - fluconazole (DIFLUCAN) 150 mg tablet Take 1 tablet by mouth once daily for 1 day. No family history on file. Social History Tobacco Use - Smoking status: Never - Smokeless tobacco: Never Review of Systems Constitutional: Negative for diaphoresis and fever. Eyes: Negative for pain, discharge, redness and itching. Respiratory: Negative for apnea, cough, choking and chest tightness. Cardiovascular: Negative for chest pain, palpitations and leg swelling. Gastrointestinal: Negative for abdominal pain, anorexia, constipation, diarrhea, nausea and vomiting. Genitourinary: Positive for dysuria and vaginal discharge. Negative for dyspareunia, frequency, urgency and vaginal bleeding. Musculoskeletal: Negative for arthralgias, back pain and gait problem. Skin: Negative for color change, pallor, rash and wound. Allergic/Immunologic: Negative for environmental allergies, food allergies and immunocompromised state. Neurological: Negative for dizziness, facial asymmetry, light-headedness and headaches. Hematological: Negative for adenopathy. Does not bruise/bleed easily. Psychiatric/Behavioral: Negative for agitation and behavioral problems. Objective BP 125/80 Pulse 97 Temp 36.9 ?C (98.5 ?F) Resp 18 Wt 58.4 kg (128 lb 12 oz) LMP 06/26/2024 (Exact Date) SpO2 99% Physical Exam Vitals and nursing note reviewed. Constitutional: General: She is not in acute distress. Appearance: Normal appearance. She is normal weight. She is not ill-appearing, toxic-appearing or diaphoretic. HENT: Head: Normocephalic and atraumatic. Right Ear: Ear canal and external ear normal. Left Ear: Ear canal and external ear normal. Nose: Nose normal. No congestion or rhinorrhea. Mouth/Throat: Mouth: Mucous membranes are moist. Pharynx: No oropharyngeal exudate or posterior oropharyngeal erythema. Eyes: General: Right eye: No discharge. Left eye: No discharge. Extraocular Movements: Extraocular movements intact. Conjunctiva/sclera: Conjunctivae normal. Pupils: Pupils are equal, round, and reactive to light. Cardiovascular: Rate and Rhythm: Normal rate and regular rhythm. Pulses: Normal pulses. Heart sounds: Normal heart sounds. No murmur heard. No friction rub. Pulmonary: Effort: Pulmonary effort is normal. No respiratory distress. Breath sounds: Normal breath sounds. No stridor. No wheezing, rhonchi or rales. Chest: Chest wall: No tenderness. Abdominal: General: Abdomen is flat. There is no distension. Palpations: Abdomen is soft. There is no mass. Tenderness: There is no abdominal tenderness. There is no right CVA tenderness, left CVA tenderness, guarding or rebound. Hernia: No hernia is present. Genitourinary: Comments: Declines at this time Musculoskeletal: General: No swelling, tenderness, deformity or signs of injury. Normal range of motion. Cervical back: Normal range of motion and neck supple. No rigidity. Right lower leg: No edema. Left lower leg: No edema. Lymphadenopathy: Cervical: No cervical adenopathy. Skin: General: Skin is warm and dry. Capillary Refill: Capillary refill takes less than 2 seconds. Coloration: Skin is not jaundiced or pale. Findings: No bruising, erythema, lesion or rash. Neurological: General: No focal deficit present. Mental Status: She is alert and oriented to person, place, and time. Cranial Nerves: No cranial nerve deficit. Sensory: No sensory deficit. Motor: No weakness. Coordination: Coordination normal. Gait: Gait normal. Psychiatric: Mood and Affect: Mood normal. Behavior: Behavior normal. Thought Content: Thought content normal. Judgment: Judgment normal. Assessment and Plan ASSESSMENT/PLAN: 1. Vaginal discharge - ICD9: 623.5, ICD10: N89.8 X 4 days Currently on menses Denies pelvic Denies self swab, citing she has not additional cassie care materials on here Will treat with x 1 Diflucan If no improvement in sx She is to follow back up for pelvic examination Isidoro Nelson APRN.C[facility] RECORDER Allergies As of Date: 06/29/2024 (No Known Allergies) Date Reviewed: 06/29/2024 Reviewed by: John Isidro MA - Fully Assessed Reason for Visit: Vaginal Discharge [4161] Cmt: X4 days Primary Visit Diagnosis:Vaginal discharge [N89.8] Order(s):fluconazole (DIFLUCAN) 150 mg tabletTake 1 tablet by mouth once daily for 1 day.Disp: 1 tabletRfl: 0 Prescriptions as of 06/29/2024 - fluconazole (DIFLUCAN) 150 mg tablet Take 1 tablet by mouth once daily for 1 day. Problem List As Of Date: 06/29/2024 (None) Prescriptions ordered this encounter Disp Refills Start End FLUCONAZOLE 150 MG TABLET 1 ta* 0 06/29/2024 06/30/2024 Route: ORAL Sig: Take 1 tablet by mouth once daily for 1 day. Encounter Status:Closed by ISIDORO NELSON on 06/29/24 PROGRESS Observed: 06/29/2024 2:43 PM Status: COMPLETED Source: [facility] HNO ID: [id number] Author: ISIDORO NELSON APRN.CITY RECORDER Service: ? Author Type: Nurse Practitioner Type: Progress Notes Filed: 06/29/2024 15:02 Note Text: This note was created using NoteWriter. Cachorro Klein is a 18 year old female. 18 year old female with no PMH presents for illness Acute onset 4 days ago +vaginal discharge +white +thick and chunky +burning with urination Denies abdominal pain Denies flank pain Denies skin rash or lesions. LMP-June 26 +sexually active Denies contraceptives Denies prior history of Recent ATB usage The history is provided by the patient. No world language teacher was used. Vaginal Discharge This is a new problem. The current episode started more than 2 days ago. The problem occurs constantly. The problem has been gradually worsening. The discharge occurs While at rest. The discharge was White and thick. She is not . She has not missed her period. Associated symptoms include dysuria. Pertinent negatives include no anorexia, no diaphoresis, no fever, no abdominal swelling, no abdominal pain, no constipation, no diarrhea, no nausea, no vomiting, no dyspareunia, no frequency, no genital burning, no genital itching, no genital lesions, no perineal pain and no perineal odor. She has tried nothing for the symptoms. The treatment provided no relief. Her past medical history does not include irregular periods, PID, STD, ectopic , ovarian cysts or infertility. No past medical history on file. No past surgical history on file. ALLERGIES Patient has no known allergies. MEDICATIONS - fluconazole (DIFLUCAN) 150 mg tablet Take 1 tablet by mouth once daily for 1 day. No family history on file. Social History Tobacco Use - Smoking status: Never - Smokeless tobacco: Never Review of Systems Constitutional: Negative for diaphoresis and fever. Eyes: Negative for pain, discharge, redness and itching. Respiratory: Negative for apnea, cough, choking and chest tightness. Cardiovascular: Negative for chest pain, palpitations and leg swelling. Gastrointestinal: Negative for abdominal pain, anorexia, constipation, diarrhea, nausea and vomiting. Genitourinary: Positive for dysuria and vaginal discharge. Negative for dyspareunia, frequency, urgency and vaginal bleeding. Musculoskeletal: Negative for arthralgias, back pain and gait problem. Skin: Negative for color change, pallor, rash and wound. Allergic/Immunologic: Negative for environmental allergies, food allergies and immunocompromised state. Neurological: Negative for dizziness, facial asymmetry, light-headedness and headaches. Hematological: Negative for adenopathy. Does not bruise/bleed easily. Psychiatric/Behavioral: Negative for agitation and behavioral problems. Objective BP 125/80 Pulse 97 Temp 36.9 ?C (98.5 ?F) Resp 18 Wt 58.4 kg (128 lb 12 oz) LMP 06/26/2024 (Exact Date) SpO2 99% Physical Exam Vitals and nursing note reviewed. Constitutional: General: She is not in acute distress. Appearance: Normal appearance. She is normal weight. She is not ill-appearing, toxic-appearing or diaphoretic. HENT: Head: Normocephalic and atraumatic. Right Ear: Ear canal and external ear normal. Left Ear: Ear canal and external ear normal. Nose: Nose normal. No congestion or rhinorrhea. Mouth/Throat: Mouth: Mucous membranes are moist. Pharynx: No oropharyngeal exudate or posterior oropharyngeal erythema. Eyes: General: Right eye: No discharge. Left eye: No discharge. Extraocular Movements: Extraocular movements intact. Conjunctiva/sclera: Conjunctivae normal. Pupils: Pupils are equal, round, and reactive to light. Cardiovascular: Rate and Rhythm: Normal rate and regular rhythm. Pulses: Normal pulses. Heart sounds: Normal heart sounds. No murmur heard. No friction rub. Pulmonary: Effort: Pulmonary effort is normal. No respiratory distress. Breath sounds: Normal breath sounds. No stridor. No wheezing, rhonchi or rales. Chest: Chest wall: No tenderness. Abdominal: General: Abdomen is flat. There is no distension. Palpations: Abdomen is soft. There is no mass. Tenderness: There is no abdominal tenderness. There is no right CVA tenderness, left CVA tenderness, guarding or rebound. Hernia: No hernia is present. Genitourinary: Comments: Declines at this time Musculoskeletal: General: No swelling, tenderness, deformity or signs of injury. Normal range of motion. Cervical back: Normal range of motion and neck supple. No rigidity. Right lower leg: No edema. Left lower leg: No edema. Lymphadenopathy: Cervical: No cervical adenopathy. Skin: General: Skin is warm and dry. Capillary Refill: Capillary refill takes less than 2 seconds. Coloration: Skin is not jaundiced or pale. Findings: No bruising, erythema, lesion or rash. Neurological: General: No focal deficit present. Mental Status: She is alert and oriented to person, place, and time. Cranial Nerves: No cranial nerve deficit. Sensory: No sensory deficit. Motor: No weakness. Coordination: Coordination normal. Gait: Gait normal. Psychiatric: Mood and Affect: Mood normal. Behavior: Behavior normal. Thought Content: Thought content normal. Judgment: Judgment normal. Assessment and Plan ASSESSMENT/PLAN: 1. Vaginal discharge - ICD9: 623.5, ICD10: N89.8 X 4 days Currently on menses Denies pelvic Denies self swab, citing she has not additional cassie care materials on here Will treat with x 1 Diflucan If no improvement in sx She is to follow back up for pelvic examination Isidoro Nelson APRN.[facility] C.TRACHOMATIS/GC PCR PANEL Observed: 12:24 PM Status: F Source: [facility] Order Comment: Method: DNA d etection by Real-Time PCR using the Xpert CT/NG assay on a Partschannel analyzer. This amplified DNA assay should not be used for the evaluation of suspected sexual abuse or for other medico-legal indications. Performance of the Xpert CT/NG Assay has not been evaluated in patients less than 14 years of age. Results should be interpreted in conjunction with other laboratory and clinical data. Screening urine specimens for Chlamydia trachomatis and Neisseria gonorrhoeae using nucleic acid amplification is an accurate and sensitive method compared to standard techniques of detection of these pathogens. However, because the pathogen is diluted in urine, it is less sensitive than a direct swab specimen. If the total volume of urine collected exceeds 50 mL, assay sensitivity may be further reduced due to dilution of the target pathogen within the specimen. Reason for preventing automatic release->Other Release to patient->Manual release only C. trachomatis PCR Not DetectedN. gonorrhoeae PCR Not Detected URINE CULTURE Observed: 06/15/2024 12:24 PM Status: F Source: [facility] Order Comment: Release to or tient->Automatic Urine Culture 10,000 - 50,000 CFU/mL of Normal Skin/urogenital chas present [id number] AGALACTIAE 10,000-50,000 CFU/mL Streptococcus agalactiae [id number] AUREUS <10,000 CFU/mL Staphylococcus aureus If further work-up is needed, providers should call the Microbiology Laboratory within 3 days. Organism: STREPTOCOCCUS AGALACTIAE Antibiotic Interpretation ROLLY Status Levofloxacin S 1.00 F Ampicillin S <=0.25 F Ceftriaxone S <=0.12 F Benzylpenicillin S 0.12 F Erythromycin R >=8.0 F Clindamycin R >=1.0 F Vancomycin S 0.5 F Inducible Clindamycin N F Cefotaxime S <=0.12 F PROGRESS NOTE Observed: 06/15/2024 11:45 AM Status: COMPLETED Source: [facility] Patient ID: Sonu garcia is a 18 y.o. female. Her chief complaint(s) include: Vomiting, Headache, and Fatigue Assessment 1. Nausea and vomiting, unspecified vomiting type 2. Dysuria 3. Screening examination for STI 4. control counseling Plan Sonu was seen today for vomiting, headache and fatigue. Diagnoses and associated orders for this visit: Nausea and vomiting, unspecified vomiting type - POCT urinalysis dipstick - Urine culture - POCT urine HCG - ondansetron (ZOFRAN) 4 MG tablet; Take 1 Tablet (4 mg) by mouth every 8 hours as needed for Nausea Dysuria - POCT urinalysis dipstick - Urine culture Screening examination for STI - Urine culture - C.trachomatis/GC PCR Panel control counseling - AMB Referral To Obstetrics/Gynecology; Future Instructed to push fluids and monitor for any signs of dehydration. Will provide zofran to use if vomiting/nausea continues. Patient recently treated for bacterial vaginitis. No vaginal discharge but still having some issues with foul smelling urine. Obtained urine sample to test for bacteria and will also test for chlamydia and gonorrhea. Urinalysis was positive for trace leukocytes/blood and protein. Patient with large amounts of ketones. Patient also sexually active so will obtain urine hcg to make sure nausea/vomiting not due to . Urine hcg was negative. Will refer patient to county commissioner to discuss options for control to use in conjunction with partner using condom. Will start patient on antibiotics if urine culture/STI culture is positive. To follow up if symptoms not improving or worsening. Return if symptoms worsen or fail to improve, for Well Visit and as needed. Subjective She is unaccompanied. Vomiting VOMITING The onset of vomiting is 2 days ago. The duration of vomiting is 2 days. The frequency of vomiting is 5 times a day. The patient's last emesis was noted 1-4 hours ago. Timing of vomiting: usually after activity and eating. The emesis is not described as bilious or containing blood. (more of a yellow,stomach acid color). Course: diarrhea 2 weeks ago, none since. The patient's associated symptoms have included: fatigue (been sleeping a lot), headaches (pain at yarsanism areas/vision seems normal) and vomiting. The patient has no fever, no congestion, no rhinorrhea, no sore throat, no cough, no bilateral ear pain, no difficulty breathing, no abdominal pain, no diarrhea, no dysuria (not currently having pain with the voiding) or no rash. (hot flashes). The patient has been exposed to no sick contacts. Contributing Factors: none known. Additional Parental Concerns: Patient treated for bacterial vaginitis couple of weeks ago. Denies any dysuria at this time and no abnormal vaginal discharge. Patient states she is sexually active. Patient not on control. Partner always uses condom. LMP: 05/16/24. Patient usually is pretty regular. Last sexually active sometime in last 2 weeks. Patient still with good urine output. Review of Systems HENT: Positive for headaches. Objective Vital Signs 06/15/24 1142 06/15/24 1144 BP: 125/84 127/81 Pulse: 88 84 Temp: 36.6 C (97.8 F) TempSrc: Temporal Weight: 61.7 kg Height: 157.8 cm Body mass index is 24.78 kg/m . Physical Exam Constitutional: She appears well. She is active. No distress. HENT: Head: Atraumatic. Ears: Right Ear: Tympanic membrane normal. Left Ear: Tympanic membrane normal. Nose: No nasal discharge. Mouth/Throat: Mucous membranes are moist. No pharynx erythema. Cardiovascular: Normal rate and regular rhythm. Heart murmur not heard. Pulmonary/Chest: Breath sounds normal. There is normal air entry. Neurological: She is alert. Vitals reviewed: Blood pressure 127/81, pulse 84, temperature 36.6 C (97.8 F), temperature source Temporal, height 157.8 cm, weight 61.7 kg. Last Result POCT urine HCG Collection Time: 06/15/24 12:24 PM Result Value Ref Range hCG Urine POCT Negative Negative Control Line *Present Clear Background *Present LOT # [id number] POCT urinalysis dipstick Collection Time: 06/15/24 12:22 PM Result Value Ref Range POCT, Leukocytes, Urine Trace (A) Negative POCT Nitrite, Urine Negative Negative POCT Protein, Urine Trace Negative - Trace mg/dl POCT Urine,pH 6.0 5.0 - 8.0 POCT Blood, Urine Trace Non-Hemolyzed (A) Negative POCT Urine Specific [place] 1.030 1.005 - 1.030 POCT Ketones, Urine Large (>80mg/dL) (A) Negative mg/dl POCT Glucose, Urine Negative Negative mg/dl CNPN Observed: 05/26/2024 12:00 AM Status: COMPLETED Source: [facility] SONU KLEIN ([id number]) 5 F Date Time Provider Department 05/26/24 ANDRESSA HARRIS [facility] During your visit today, we recorded the following information about you: Andressa Harris APRN.[facility] RECORDER 05/26/2024 8:15 AM Signed No growth on the urine culture. Patient should continue treatment as discussed with provider. Follow-up with primary care if symptoms do not improve. John Isidro MA 05/26/2024 11:34 AM Signed Patient has picked up prescribed medication for positive BV according to pharmacy. Several attempts to contact patient with no success and ultimately discovering that patient does not have a working phone number. Urine cx negative and patient on appropriate treatment for diagnosis. John Isidro MA Allergies As of Date: 05/26/2024 (No Known Allergies) Date Reviewed: 05/24/2024 Reviewed by: Nila Casrto MA - Fully Assessed Reason for Visit: Results [95] Prescriptions as of 05/26/2024 - metroNIDAZOLE (FLAGYL) 500 mg tablet Take 1 tablet by mouth two times a day for 7 days. Problem List As Of Date: 05/26/2024 (None) Encounter Status:Closed by JOHN ISIDRO on 05/26/24 PROSPER Observed: 05/25/2024 12:00 AM Status: COMPLETED Source: [facility] SONU KLEIN ([id number]) 5 F Date Time Provider Department 05/25/24 ISIDORO NELSON [facility] During your visit today, we recorded the following information about you: Isidoro Nelson APRN.C[facility] RECORDER 05/25/2024 9:52 AM Signed BV POSITIVE GC/Chlamydia negative Yeast and trichomonas negative. Urine culture remains pending Attempted to call patient. NO answer Message left requesting call back When returns share above. Also patient was prescribed Flagyl, and sent to Close If no return call, try again on 05/26/24 Lyndsey Lomax LPN 05/25/2024 12:36 PM Signed Unable to reach pt's mother phone. TRAV Miranda Jessica, APRN.C[facility] RECORDER 05/25/2024 1:47 PM Signed Can we please send certified letter for results to patients home. Lyndsey Lomax LPN 05/25/2024 3:45 PM Signed Letter sent to Pt. Lyndsey Lomax LPN Allergies As of Date: 05/25/2024 (No Known Allergies) Date Reviewed: 05/24/2024 Reviewed by: Nila Castro MA - Fully Assessed Reason for Visit: Results [95] Order(s):metroNIDAZOLE (FLAGYL) 500 mg tabletTake 1 tablet by mouth two times a day for 7 days.Disp: 14 tabletRfl: 0 Prescriptions as of 05/25/2024 - metroNIDAZOLE (FLAGYL) 500 mg tablet Take 1 tablet by mouth two times a day for 7 days. Problem List As Of Date: 05/25/2024 (None) Prescriptions ordered this encounter Disp Refills Start End METRONIDAZOLE 500 MG TABLET 14 t* 0 05/25/2024 06/01/2024 Route: ORAL Sig: Take 1 tablet by mouth two times a day for 7 days. Letter Text Encounter Status:Closed by LYNDSEY LOMAX on 05/25/24 PROSPER Observed: 05/25/2024 12:00 AM Status: COMPLETED Source: [facility] SONU KLEIN ([id number]) 5 F Date Time Provider Department 05/25/24 ISIDORO NELSON [facility] During your visit today, we recorded the following information about you: Isidoro Nelson APRN.CITY RECORDER 05/25/2024 4:06 PM Signed Reached out to Close Despite patient not returning phone calls, The FLAGYL was picked up per [facility] Allergies As of Date: 05/25/2024 (No Known Allergies) Date Reviewed: 05/24/2024 Reviewed by: Nila Castro MA - Fully Assessed Reason for Visit: Results [95] Prescriptions as of 05/25/2024 - metroNIDAZOLE (FLAGYL) 500 mg tablet Take 1 tablet by mouth two times a day for 7 days. Problem List As Of Date: 05/25/2024 (None) Encounter Status:Closed by ISIDORO NELSON on 05/25/24 CNOV Observed: 05/24/2024 5:45 PM Status: COMPLETED Source: [facility] SONU KLEIN ([id number]) 5 F Date Time Provider Department 05/24/24 5:45 PM EDU LUNA [facility] During your visit today, we recorded the following information about you: Temperature Pulse Respiration Blood pressure 97.3 degrees 68/minute 16/minute 122/80 Weight 64.6 kg Luna Winter APRN.[facility] 05/24/2024 5:36 PM Signed Subjective HPI Sonu Klein is a 18 year old female who presents with vaginal discharge and dysuria and frequency for past 3 or 4 days. She denies fever, chills, back pain or abdominal pain. She is currently sexually active. Currently on menses. Would like to have STD testing done. Review of Systems Constitutional: Negative for chills and fever. Respiratory: Negative. Cardiovascular: Negative. Gastrointestinal: Negative for abdominal pain, nausea and vomiting. Genitourinary: Positive for dysuria and frequency. Musculoskeletal: Negative for back pain. Skin: Negative for itching and rash. BP 122/80 Pulse 68 Temp 36.3 ?C (97.3 ?F) Resp 16 Wt 64.6 kg (142 lb 6.7 oz) LMP 12/06/2023 (Approximate) SpO2 99% No past medical history on file. No past surgical history on file. ALLERGIES Patient has no known allergies. MEDICATIONS No prescriptions on file. No family history on file. Objective Physical Exam Vitals and nursing note reviewed. Constitutional: General: She is not in acute distress. Appearance: Normal appearance. She is not ill-appearing. Cardiovascular: Rate and Rhythm: Normal rate and regular rhythm. Heart sounds: Normal heart sounds. Pulmonary: Effort: Pulmonary effort is normal. Breath sounds: Normal breath sounds. Abdominal: General: There is no distension. Palpations: Abdomen is soft. There is no mass. Tenderness: There is no abdominal tenderness. There is no right CVA tenderness, left CVA tenderness or guarding. Genitourinary: Comments: Patient declines exam, will self-swab. Skin: General: Skin is warm and dry. Neurological: Mental Status: She is alert. ASSESSMENT/PLAN: 1. Urinary frequency - ICD9: 788.41, ICD10: R35.0 (primary diagnosis) acute - UA positive for proteinuria and ketones - Send urine for culture - UA DIP, URINE (POC) - URINE CULTURE Office Visit on 05/24/2024 Component Date Value Ref Range Status GLUCOSE UA (POCT) 05/24/2024 Negative Negative mg/dL Final BILIRUBIN UA (POCT) 05/24/2024 Small (A) Negative Final KETONE UA (POCT) 05/24/2024 40 (A) Negative mg/dL Final SPECIFIC GRAVITY UA (POCT) 05/24/2024 >=1.030 1.005 - 1.030 Final HEMOGLOBIN/BLOOD UA (POCT) 05/24/2024 Negative Negative Final PH UA (POCT) 05/24/2024 6.0 4.5 - 8.0 Final PROTEIN UA (POCT) 05/24/2024 100 (A) Negative mg/dL Final UROBILINOGEN UA (POCT) 05/24/2024 1.0 Normal E.U./dL Final NITRITE UA (POCT) 05/24/2024 Negative Negative Final LEUKOCYTES UA (POCT) 05/24/2024 Negative Negative Final COLOR UA (POCT) 05/24/2024 Dark yellow Final CLARITY UA (POCT) 05/24/2024 Clear Final 2. Vaginal discharge - ICD9: 623.5, ICD10: N89.8 - DODIE/TRICHOMONAS NAAT - BACTERIAL VAGINOSIS NAAT - GONORRHEA/CHLAMYDIA NAAT - please treat as indicated by urine culture/other testing. - Follow-up with your PCP in 3-5 days if symptoms have not improved or sooner if symptoms worsen - Discussed red flags and need for immediate medical evaluation if any occur. - Discussed supportive care treatment with fluids, rest and analgesia. - Discussed expected course of illness NATALY Betancur Kathy, APRN.CNP 05/24/2024 5:35 PM Signed ASSESSMENT/PLAN: 1. Urinary frequency - ICD9: 788.41, ICD10: R35.0 (primary diagnosis) acute - UA positive for proteinuria and ketones - Send urine for culture - UA DIP, URINE (POC) - URINE CULTURE Office Visit on 05/24/2024 Component Date Value Ref Range Status GLUCOSE UA (POCT) 05/24/2024 Negative Negative mg/dL Final BILIRUBIN UA (POCT) 05/24/2024 Small (A) Negative Final KETONE UA (POCT) 05/24/2024 40 (A) Negative mg/dL Final SPECIFIC GRAVITY UA (POCT) 05/24/2024 >=1.030 1.005 - 1.030 Final HEMOGLOBIN/BLOOD UA (POCT) 05/24/2024 Negative Negative Final PH UA (POCT) 05/24/2024 6.0 4.5 - 8.0 Final PROTEIN UA (POCT) 05/24/2024 100 (A) Negative mg/dL Final UROBILINOGEN UA (POCT) 05/24/2024 1.0 Normal E.U./dL Final NITRITE UA (POCT) 05/24/2024 Negative Negative Final LEUKOCYTES UA (POCT) 05/24/2024 Negative Negative Final COLOR UA (POCT) 05/24/2024 Dark yellow Final CLARITY UA (POCT) 05/24/2024 Clear Final 2. Vaginal discharge - ICD9: 623.5, ICD10: N89.8 - DODIE/TRICHOMONAS NAAT - BACTERIAL VAGINOSIS NAAT - GONORRHEA/CHLAMYDIA NAAT - please treat as indicated by urine culture/other testing. - Follow-up with your PCP in 3-5 days if symptoms have not improved or sooner if symptoms worsen - Discussed red flags and need for immediate medical evaluation if any occur. - Discussed supportive care treatment with fluids, rest and analgesia. - Discussed expected course of illness Luna Winter APRN.CITY RECORDER Allergies As of Date: 05/24/2024 (No Known Allergies) Date Reviewed: 05/24/2024 Reviewed by: Nila Castro MA - Fully Assessed Reason for Visit: Urinary Frequency [1086] Cmt: burning and discharge x 4 days Primary Visit Diagnosis:Urinary frequency [R35.0] Other Visit Diagnosis:Vaginal discharge [N89.8] Order(s):UA DIP, URINE (POC) [9002592] Order #: [id number]. #:[id number] URINE CULTURE [SQURCUL] Order #: [id number]. #:[id number] DODIE/TRICHOMONAS NAAT [SQCVTV] Order #: [id number]. #:[id number] BACTERIAL VAGINOSIS NAAT [SQBVAMP] Order #: [id number]. #:[id number] GONORRHEA/CHLAMYDIA NAAT [SQGCCT] Order #: [id number]. #:[id number] Problem List As Of Date: 05/24/2024 (None) Other instructions from your clinician: ASSESSMENT/PLAN: 1. Urinary frequency - ICD9: 788.41, ICD10: R35.0 (primary diagnosis) acute - UA positive for proteinuria and ketones - Send urine for culture - UA DIP, URINE (POC) - URINE CULTURE Office Visit on 05/24/2024 Component Date Value Ref Range Status GLUCOSE UA (POCT) 05/24/2024 Negative Negative mg/dL Final BILIRUBIN UA (POCT) 05/24/2024 Small (A) Negative Final KETONE UA (POCT) 05/24/2024 40 (A) Negative mg/dL Final SPECIFIC GRAVITY UA (POCT) 05/24/2024 >=1.030 1.005 - 1.030 Final HEMOGLOBIN/BLOOD UA (POCT) 05/24/2024 Negative Negative Final PH UA (POCT) 05/24/2024 6.0 4.5 - 8.0 Final PROTEIN UA (POCT) 05/24/2024 100 (A) Negative mg/dL Final UROBILINOGEN UA (POCT) 05/24/2024 1.0 Normal E.U./dL Final NITRITE UA (POCT) 05/24/2024 Negative Negative Final LEUKOCYTES UA (POCT) 05/24/2024 Negative Negative Final COLOR UA (POCT) 05/24/2024 Dark yellow Final CLARITY UA (POCT) 05/24/2024 Clear Final 2. Vaginal discharge - ICD9: 623.5, ICD10: N89.8 - DODIE/TRICHOMONAS NAAT - BACTERIAL VAGINOSIS NAAT - GONORRHEA/CHLAMYDIA NAAT - please treat as indicated by urine culture/other testing. - Follow-up with your PCP in 3-5 days if symptoms have not improved or sooner if symptoms worsen - Discussed red flags and need for immediate medical evaluation if any occur. - Discussed supportive care treatment with fluids, rest and analgesia. - Discussed expected course of illness Luna Winter APRN.CITY RECORDER Disposition: Return if symptoms worsen or fail to improve. Follow-up and Disposition History for Encounter Date Provider Department Center 05/24/2024 [id number], KA*UCWSTR [facility] Lisa Encounter Status:Closed by LUNA WINTER on 05/24/24 C TRACH+GC DNA SPEC QL EBONI+PROBE Collected: 05/24/2024 5:38 PM Status: F Source: [facility] Comment: Specimen Type : SWAB Ordering Facility: [facility] Address: [address] [place] [address] TYPE CODE TESTS RESULT OUT OF RANGE REFERENCE UNITS LAB 03828-4(LOINC) N gonorrhoea rRNA Spec Ql EBONI+probe Not detected Not detected LAB 96318-6(LOINC) C trach rRNA Spec Ql EBONI+probe Not detected Not detected Performed By: #### 82468-6, BVAMP #### [facility] CLIA [id number] [address] [place] [address] [place] BACTERIAL VAGINOSIS NAAT Collected: 09/2023 5:38 PM Status: F Source: [facility] Comment: Specimen Type : SWAB Ordering Facility: [facility] Address: [address] [place] [address] TYPE CODE TESTS RESULT OUT OF RANGE REFERENCE UNITS LAB 17206-7(LOINC) BV bacteria rRNA Vag Ql EBONI+probe Detected Abnormal Not detected Performed By: #### 04451-4, BVAMP #### [facility] CLIA [id number] [address] [place] [address] [place] DODIE/TRICHOMONAS NAAT Collected: 09/2023 5:38 PM Status: F Source: [facility] Comment: Specimen Type : SWAB Ordering Facility: [facility] Address: [address] [place] [address] TYPE CODE TESTS RESULT OUT OF RANGE REFERENCE UNITS LAB 79417-4(LOINC ) Dodie DNA Vag Ql EBONI+probe Not detected Not detected Result Comment: The Dodie species group target includes C. albicans, C. tropicalis, C. parapsilosis, and C. dubliniensis. LAB 45844-4(LOINC ) C glabrata RNA Vag Ql EBONI+probe Not detected Not detected LAB 20503-7(LOINC ) T vaginalis DNA Spec Ql EBONI+probe Not detected Not detected Performed By: #### CVTV #### [facility] CLIA [id number] [address] BACTERIA UR CULT Observed: 05/24/2024 5:38 PM Status: F Source: [facility] ORGANISM ID: 1 50,000-<100,000 CFU/ml Normal urogenital chas Performed By: #### 630-4 ### # [facility] CLIA [id number] [address] OF [facility] PROGRESS Observed: 05/24/2024 5:27 PM Status: COMPLETED Source: [facility] HNO ID: [id number] Author: LUNA WINTER APRN.CITY RECORDER Service: ? Author Type: Nurse Practitioner Type: Progress Notes Filed: 05/24/2024 17:36 Note Text: Subjective HPI Sonu Klein is a 18 year old female who presents with vaginal discharge and dysuria and frequency for past 3 or 4 days. She denies fever, chills, back pain or abdominal pain. She is currently sexually active. Currently on menses. Would like to have STD testing done. Review of Systems Constitutional: Negative for chills and fever. Respiratory: Negative. Cardiovascular: Negative. Gastrointestinal: Negative for abdominal pain, nausea and vomiting. Genitourinary: Positive for dysuria and frequency. Musculoskeletal: Negative for back pain. Skin: Negative for itching and rash. BP 122/80 Pulse 68 Temp 36.3 ?C (97.3 ?F) Resp 16 Wt 64.6 kg (142 lb 6.7 oz) LMP 12/06/2023 (Approximate) SpO2 99% No past medical history on file. No past surgical history on file. ALLERGIES Patient has no known allergies. MEDICATIONS No prescriptions on file. No family history on file. Objective Physical Exam Vitals and nursing note reviewed. Constitutional: General: She is not in acute distress. Appearance: Normal appearance. She is not ill-appearing. Cardiovascular: Rate and Rhythm: Normal rate and regular rhythm. Heart sounds: Normal heart sounds. Pulmonary: Effort: Pulmonary effort is normal. Breath sounds: Normal breath sounds. Abdominal: General: There is no distension. Palpations: Abdomen is soft. There is no mass. Tenderness: There is no abdominal tenderness. There is no right CVA tenderness, left CVA tenderness or guarding. Genitourinary: Comments: Patient declines exam, will self-swab. Skin: General: Skin is warm and dry. Neurological: Mental Status: She is alert. ASSESSMENT/PLAN: 1. Urinary frequency - ICD9: 788.41, ICD10: R35.0 (primary diagnosis) acute - UA positive for proteinuria and ketones - Send urine for culture - UA DIP, URINE (POC) - URINE CULTURE Office Visit on 05/24/2024 Component Date Value Ref Range Status GLUCOSE UA (POCT) 05/24/2024 Negative Negative mg/dL Final BILIRUBIN UA (POCT) 05/24/2024 Small (A) Negative Final KETONE UA (POCT) 05/24/2024 40 (A) Negative mg/dL Final SPECIFIC GRAVITY UA (POCT) 05/24/2024 >=1.030 1.005 - 1.030 Final HEMOGLOBIN/BLOOD UA (POCT) 05/24/2024 Negative Negative Final PH UA (POCT) 05/24/2024 6.0 4.5 - 8.0 Final PROTEIN UA (POCT) 05/24/2024 100 (A) Negative mg/dL Final UROBILINOGEN UA (POCT) 05/24/2024 1.0 Normal E.U./dL Final NITRITE UA (POCT) 05/24/2024 Negative Negative Final LEUKOCYTES UA (POCT) 05/24/2024 Negative Negative Final COLOR UA (POCT) 05/24/2024 Dark yellow Final CLARITY UA (POCT) 05/24/2024 Clear Final 2. Vaginal discharge - ICD9: 623.5, ICD10: N89.8 - DODIE/TRICHOMONAS NAAT - BACTERIAL VAGINOSIS NAAT - GONORRHEA/CHLAMYDIA NAAT - please treat as indicated by urine culture/other testing. - Follow-up with your PCP in 3-5 days if symptoms have not improved or sooner if symptoms worsen - Discussed red flags and need for immediate medical evaluation if any occur. - Discussed supportive care treatment with fluids, rest and analgesia. - Discussed expected course of illness Luna Winter APRN.CITY RECORDER ALLERGIES DATE TYPE / CODE NAME / CODE REACTION SEVERITY SOURCE Miscellaneous Allergy/188868408(SNOMED CT) NO KNOWN ALLERGIES [facility] Miscellaneous Allergy/483540998(SNOMED CT) NO KNOWN ALLERGIES [facility] Drug Class/502454636(SNOMED CT) NO KNOWN ALLERGIES [facility] ENCOUNTERS ADMIT/DISCHARGE ACCOUNT NUMBER ADMITTING ENCOUNTER CLASS LOCATION SOURCE 02/03/2025/ 5 [id number] [facility]/22/2025/ 5 [id number] [facility] MAINBuilding: [facility] 09/20/2024/ 5 [id number] Ambulatory Building:[facility] 08/21/2024/ 5 [id number] Emergency Building:[facility] Room: TR5Bed: [address] 06/29/2024/ [id number] [facility] 06/15/2024/ 4 [id number] Ambulatory Building:[facility] 05/24/2024/ 4 [id number] [facility] PAYERS ENCOUNTER GUARANTOR PAYER SUBSCRIBER SOURCE 02/03/2025 Primary Insuranc e:BLUE CARD PPO OOSPolicy Number: [id number] Date:9485-89-65Hpgl Name:Janelle LASSITERB: [id number] [address] [address] [facility] 02/03/2025 Secondary Insurance:HUMANA MEDICAID [facility]: [id number] Date:5779-64-74Ongc Name:Arun ASCENCIO TABLERDOB: [id number] [address] [facility] 01/22/2025 SONU TABLERDOB: [id number] [address]Eul: (HP) Primary Insurance:[employer] BLUE CROSS INSCOPolicy Number: [id number] Date:1350-10-73Rnwl Name:BPO [id number] [address]YG: PRACHI LASSITERB: [id number] [address]Ozn: (HP) (WP) [facility] 01/22/2025 Secondary Insurance:HUMANA INSCOPolicy Number: [id number] Date:7585-20-98Fkaf Name:[address] [place] [address]JG: SONU TABLERDOB: 2036 [place] [address]Gcs: (HP) (WP) [facility] 09/20/2024 SONU NGUYEN TABLERDOB: [address] [place], [place] [address]Vfo: ~(23 4 (HP) Primary Insurance:HUMANA [employer] [place]: [id number] Date: MARY [address] [place] [address]OO: SONU NGUYEN TABLERDOB: [id number] [place] [address] [facility] 08/21/2024 SONU Begum TABLERDOB: [address] [place], [place] [address]Kwh: ~(41 9 (HP) Primary Insurance:HUMANA MANAGED MEDICAIDPolicy Number: [id number] Date:2024-08-21 SONU Kel TABLERDOB: 2042 [place], [place] [address]Cmc: (HP) [facility] 06/29/2024 Primary Insurance:HUMANA MEDICAID [facility] Number: [id number] Date:7555-78-97Vkgo Name:Arun CHAVEZSONU TABLERDOB: [id number] [place] [address] [facility] 06/15/2024 SONU NGUYEN TABLERDOB: [address] [place], [place] [address]Tbl: ~(75 4 (HP) Primary Insurance:HUMANA [employer]Y [employer]ONS [place]: [id number] Date:[facility] [id number] [place] [address]ZK: SONU NGUYEN TABLERDOB: [id number] [place], [place] [address] [place] [address] 05/24/2024 Primary Insurance:HUMANA MEDICAID [facility]ITALPolicy Number: [id number] Date:2386-08-71Sdna Name:Arun ASCENCIO TABLERDOB: [birth year] [place] [address] [facility]
[2025-03-18 07:53] VITALS: BP 122/82; PULSE 124; RESP 16; TEMP 36.8; O2SAT 100; BMI 24.9
--- NOTE | 2025-03-18 08:03 | US_ITS ---
PROCEDURE: TRANSVAGINAL W/PREG US 03/18/2025 REASON FOR EXAM: ABDOMINAL PAIN. Unknown LMP. Cramping and pain with . TECHNIQUE: Procedure Code: USTVAGP Modality: US Procedure: TRANSVAGINAL W/PREG US COMPARISON: None. FINDINGS GESTATION: Irregular single intrauterine gestational sac with a mean diameter of 8.0 mm. No embryonic pole is identified at this time. Normal appearing yolk sac present. LMP gestational age: Unknown LMP LMP JUAN: Unknown LMP Sonographic gestational age: 5 weeks 4 days Sonographic JUAN: November 14, 2025 UTERUS: Unremarkable measuring 9.0 x 6.9 x 3.5 cm. No myometrial mass. CERVIX: Closed. Unremarkable. OVARIES: Right ovary measures 2.2 x 2.6 x 1.7 cm with a volume of 5.1 mL. Enlarged left ovary measuring 3.6 x 5.1 x 3.0 cm with a volume of 28.6 mL. Anechoic 3.3 x 2.8 x 2.6 cm left ovarian cyst/corpus luteum. Doppler evaluation confirms bilateral ovarian blood flow. No adnexal mass. FREE FLUID: No free fluid. US/Transvaginal w/Preg US IMPRESSION: Single intrauterine gestation with yolk sac but no pole yet identified. A dvise follow up for viability. Reading Location: [id number]
--- NOTE | 2025-03-18 08:03 | ED.VIS.FEGU ---
HPI HPI - Female History of Present Illness Chief Complaint: Detail of Chief Complaint: and abdominal pain Informant: patient and parent Narrative Narrative: Patient presents to the emergency department with abdominal cramping that started 24 hours ago. Patient states that she took a test 5 days ago and was positive. She had 3 positives at home. She is not sure when her last menstrual period was. This is her first . Denies vaginal bleeding. Patient also has chronic history of some constipation and her last normal bowel movement was 2 days ago and had small amount this morning. She denies nausea or vomiting. She denies fever. She denies bloody stools. [facility] Medical History (Updated 03/18/25 @ 10:[address] Dylan David DO) Opioid type dependence, abuse Marijuana abuse Methamphetamine use Home Medications ?Medication ?Instructions ?Recorded ?Last Taken ?Type ferrous sulfate 325 mg (65 mg 325 mg PO DAILY 03/18/25 Unknown History iron) tablet (Feosol) vits no.133-ferrous 1 tab PO DAILY 03/18/25 03/17/25 History fumarate 28 mg-folic acid 800 mcg tablet () Allergy/AdvReac Type Severity Reaction Status Date / Time No Known Allergies Allergy Verified 03/18/25 07:55 Family History (Updated 12/20/23 @ 15:[address] Lizbeth Hooker DO) Other Alcoholism Substance abuse Social History (Updated 12/20/23 @ 15:[address] Lizbeth Hooker DO) household members: family Smoking Status: Never smoker alcohol intake: never substance use type: marijuana, amphetamines and opiates ROS ROS ED Review of Systems ROS Unobtainable: other Constitutional Constitutional ED: Reports lethargy; Denies chills, fever(s), sweats or weight loss Eyes Eyes: Denies blurry vision, change in vision or diplopia ENT ENT ED: Denies rhinorrhea or sore throat Cardiovascular Cardiovascular: Denies chest pain, orthopnea or racing heartbeat Respiratory/Chest Respiratory/Chest: Denies cough, dyspnea, dyspnea on exertion, orthopnea or sputum Gastrointestinal Gastrointestinal: Reports abdominal pain and constipation; Denies diarrhea, nausea or vomiting Genitourinary Genitourinary ED: Reports other Details: ; Denies dysuria, hematuria or urinary frequency Musculoskeletal Musculoskeletal: Denies arthralgias, back pain, myalgias or neck pain Integumentary Denies abscess, Abrasions or rash Neurologic Neurologic: Denies headache(s) or weakness Psychiatric Psychiatric: Denies anxiety, depression or suicidal thoughts Endocrine Endocrinology: Denies polydipsia, polyphagia or polyuria Hematologic/Lymphatic Hematologic/Lymphatic: Denies easy bleeding, easy bruising or lymphadenopathy Allergic/Immunologic Allergic/Immunologic ED: Denies mouth swelling, tongue swelling or urticaria EXAM Physical Exam Const Vital Signs: 03/18/25 07:53 Temperature 98.2 F Temperature Source Oral Pulse Rate 124 H Respiratory Rate 16 Blood Pressure 122/82 H Blood Pressure Mean 95 Pulse Ox 100 Oxygen Delivery Method Room Air Positive well nourished and well developed General Appearance ED: well developed and NAD HEENT Reports TM's clear and moist mucous membranes normocephalic and atraumatic; Negative for trauma or tenderness Tympanic Membrane ED: Yes TM's clear Eyes PERRL and EOMs intact bilaterally General Eye ED: Negative for pale conjunctiva or scleral icterus Neck no lymphadenopathy, supple and no JVD General: Negative for tenderness Chest Wall inspection of chest normal and palpation of chest normal Chest: Negative for tenderness Resp normal respiratory effort and clear to auscultation bilaterally Effort and Inspection: Negative for respiratory distress or pain with movement Auscultation: Negative for rhonchi, wheezes or diminished lung sounds Cardio regular rate, regular rhythm, S1 normal heart sound, S2 normal heart sound and no murmurs Peripheral Pulses: pulses 2+ throughout GI normal to inspection, nondistended, normoactive bowel sounds, soft to palpation, non-distended and no masses GI Narrative: Mild diffuse suprapubic tenderness on exam. There is no rebound, rigidity, or peritoneal signs. No mass palpated. Back/Spine no CVA tenderness and no thoracic nor lumbar tenderness Extremity normal to inspection General Extremety ED: Negative for edema General Extremity: Negative for edema Neuro oriented x3, CN's II-XII intact bilaterally, no sensory deficits noted and gait normal Sensorium / Orientation: awake, alert, oriented to person, oriented to place and oriented to time Motor Exam: strength 5/5 throughout and strength abnormal Psych mental status grossly normal Skin no rashes or lesions noted and no wounds MDM MDM MDM Narrative Medical decision making narrative: Patient presents with and constipation. Unsure how far along she might be. She took a test 5 days ago. She is not having any vaginal bleeding. She complains of some lower abdominal discomfort. IV line established. CBC with differential obtained was unremarkable. Urine was negative for infection. Quant was 5669. A positive blood type. Pelvic ultrasound showed single live intrauterine measuring 5 weeks 4 days but no heartbeat at this time. Suspect early without signs for ectopic. Patient will be discharged to home. Advised on prune juice and apple juice if constipation issues. She has taken MiraLAX in the past and she can continue with that. Lab Data Attestation: I reviewed the patient's lab results. Labs: Laboratory Results - last 24 hr 03/18/25 03/18/25 08:15 08:40 HCG, Quant 5669 H Urine Color Yellow Urine Clarity Clear Urine pH 6.0 Ur Specific [place] 1.025 Urine Protein 30 H Urine Glucose (UA) 100 H Urine Ketones 5 H Urine Occult Blood Negative Urine Nitrite Negative Urine Bilirubin Negative Urine Urobilinogen 1 H Ur Leukocyte Esterase 25 H Urine RBC 0 SEEN Urine WBC 0-5 SEEN Ur Squamous Epith Cells 0-5 SEEN Urine Bacteria 0 SEEN Urine Mucus 0 SEEN Blood Type Cancelled A POSITIVE Radiography Diagnostic Testing: Clinical Impression(s) from Imaging Studies Obstetrics Ultrasound 03/18/25 08:03 IMPRESSION: Single intrauterine gestation with yolk sac but no pole yet identified. Advise follow up for viability. Reading Location: [facility] Discharge Plan Triage Chief Complaint: ED Provider: Dylan David Dx/Rx/DC Orders Clinical Impression: , Constipation Instructions: ED Constipation (Adult), ED Prescriptions: No Action 28-800 mg-mcg tablet 1 tab PO DAILY ferrous sulfate [Feosol] 325 mg (65 mg iron) tablet 325 mg PO DAILY Patient Comments: takes when she remebers Primary Care Provider: Cele Cunningham Referrals: Cele Cunningham MD [Primary Care Provider, Pediatrics] Katie Sloan MD [Med Staff - Active Staff, Obstetrics-Gynecology (OBGYN)] - 3-5 Days Print Language: Occitan Disposition Disposition: Home, Self Care
[2025-03-18 08:48] LABS: Mucous, Urine 0 SEEN /hpf (<or=2+); Red Blood Cells-Urine 0 SEEN /hpf (0-5)
[2025-03-18 08:51] LABS: Color, Urine Yellow (Yellow); Glucose, Dipstick 100 mg/dl (Normal); Ketone-Dipstick 5 mg/dl (Negative); Leukocyte Esterase-Dipstick 25 /ul (Negative); Nitrite-Dipstick Negative (Negative); Occult Blood-Urine Negative /ul (Negative); Protein-Dipstick 30 mg/dl (Negative); Specific Gravity, Urine 1.025 (1.002-1.030); Urine Bilirubin Dipstick Negative (Negative)
[2025-03-18 08:58] LABS: Squamous Epithelial Cells - UA 0-5 SEEN /hpf (5-10)
[2025-03-18 09:05] LABS: hCG Titer Quant., Serum 5669 mIU/mL (<9 non-preg)
[2025-03-18 11:06] VITALS: BP 112/64; PULSE 83; RESP 16; TEMP 36.8; O2SAT 100
[2025-03-18 11:08] LABS: Hematocrit 39.5 % (37-47); Hemoglobin 12.7 g/dL (12.0-15.0); Immature Granulocytes Count 0.020 X10^3/uL (0.0-0.0); Mean Corp Hgb Conc 32.2 g/dL (32-36); Mean Corpuscular Volume 88.0 fL (81-99); Mean Platelet Vol. 10.2 fl (6.2-12.0); NRBC Flagged by Analyzer 0 % (0-5); Platelet Count 293 K/mm3 (150-450); RBC Distribution Width CV 13.1 % (11.6-14.6); RBC Distribution Width SD 42.2 fl (35.1-43.9); Red Blood Count 4.49 M/mm3 (4.2-5.4); White Blood Count 6.3 K/mm3 (4.4-11.0)
== END 2025-03-18 11:07 | disposition home or self-care (01) ==
PROVIDERS: Emergency Provider Emergency Medicine; PCP Pediatrics; Visit Provider Emergency Medicine
DX: O26.891 Other specified pregnancy related conditions, first trimester (principal); R10.9 Unspecified abdominal pain; K59.00 Constipation, unspecified; Z3A.01 Less than 8 weeks gestation of pregnancy; O99.611 Diseases of the digestive system complicating pregnancy, first trimester
CPT/HCPCS: 76817; 81001; 84702; 85025; 86900; 86901; 99283; A4216